=== PATIENT | male | born 1935 | race Caucasian/White ===

== ENCOUNTER 2017-01-09 03:32 | Inpatient (IN) | payer MEDICARE ==
[~2017-01-09] VITALS: Ht 172.7 cm; Wt 83.6 kg
[~2017-01-09 03:32] MED LIST: CARB-47 PO; CARV25TA2 PO; CITA20TA9 PO; CLOP75TA19 PO; ISOS60TA PO; METF-47 PO; MULT-934 PO; NITR0.3T10 SL; OMEG500C7 PO; PANT40TA25 PO; QUET25TA PO; ROPI1TAB12 PO; SIMV40TA5 PO; SUCR1TAB20 PO; VALS160T13 PO; [UNRECOGNIZED DRUG - CODE] PO
--- OUTSIDE RECORDS SUMMARY | 2017-01-09 03:36 | XMS REPORT | Continuity of Care Document ---
Author Author [facility] Organization [facility] Address Unknown Phone Unavailable Support Name Relationship Address Phone IGNACIA LOPEZ MD Caregiver [address] [place] [address] Unavailable IGNACIA JULIAN DO Caregiver [phone] [facility] [address] [address] [place] [address] Unavailable ANT VIRK Next Of Kin [address] [place] [address] Insurance Providers Guarantor Tonia Virk Address [address] [place] [address] Email DENIED 16 Payer Medicare Policy Number [id number] Subscriber's Name Tonia Virk Relationship 18 Self Effective Date 13 [facility] Policy Number [id number] Subscriber's Name Tonia Virk Relationship 18 Self Group Number [id number] Advance Directives Directive Response Recorded Date/Time Advanced Directives Type None 08/31/16 11:16pm Chief Complaint and Reason for Visit Chief Complaint Chest Pain Reason for Visit [id number] Problems Active Problems Medical Problem Onset Date Status Anxiousness Unknown Acute CAD (coronary artery disease) Unknown Chronic Chest pain Unknown Acute Fish hook injury of right thumb Unknown Acute Fish hook injury of right thumb Unknown Acute Gastritis ~04/2011 Chronic HTN (hypertension) Unknown Chronic Osteoarthritis cervical spine Unknown Chronic Overweight (BMI 25.0-29.9) Unknown Chronic Psoriasis Unknown Chronic Type 2 diabetes, controlled, with neuropathy Unknown Chronic Weakness Unknown Acute Past Problems Medical Problem Onset Date Unstable angina Unknown Medications Current Home Medications Medication Dose Units Route Directions Days Qty Instructions Start Date Aspirin (Ecotrin) 325 Mg Tablet. 325 Mg Oral Daily 07/18/09 Carbidopa/Levodopa (Sinemet 25-100 Mg Tablet) 1 Each Tablet 1 Tab Oral Three Times A Day 90 Tablet 08/31/16 Carvedilol 25 Mg Tablet 1 Tab Oral Twice Daily With Meals BEST WITH FOOD. 08/31/16 Citalopram Hydrobromide (Citalopram Hbr) 20 Mg Tablet 1 Tab Oral Bedtime 02/04/15 Clopidogrel Bisulfate (Plavix) 75 Mg Tablet 75 Mg Oral Daily 18/05 Isosorbide Mononitrate 60 Mg Tab.sr.24h 60 Mg Oral Twice A Day Metformin Hcl (Glucophage) 500 Mg Tablet 500 Mg Oral Twice A Day 07/18/09 Multivitamins (Multi-Day Vitamin) 1 Tab Tablet 1 Tab Oral Daily 07/18/09 Nitroglycerin 0.3 Mg Tab.subl 0.3 Mg Sublingual As Needed [place]-3 Fatty Acids (Fish Oil) 500 Mg Capsule 1,000 Mg Oral Daily 07/18/09 Pantoprazole Sodium (Protonix) 40 Mg Tablet.dr 40 Mg Oral Daily 07/18/09 Quetiapine Fumarate (Seroquel) 25 Mg Tablet 25 Mg Oral Bedtime Take 1 tablet, by mouth, once a day at bedtime. 07/26/15 Ropinirole Hcl 1 Mg Tablet Unknown Dose Oral 09/01/16 Simvastatin 40 Mg Tablet 40 Mg Oral Bedtime Take 1 tablet, by mouth , 1 time a day (at BEDTIME). 09/01/16 Sucralfate (Carafate) 1 Gm Tablet 1 G Oral Daily Take 1 tablet, by mouth, 4 times a day (Before EACH meal and at BEDTIME). 09/01/16 Valsartan (Diovan) 160 Mg Tablet 160 Mg Oral Daily 07/18/09 Past Home Medications Medication Directions Ordered Status Metoprolol Succinate (Toprol Xl) 50 Mg Tab.sr.24h, 50 Mg Oral Daily 07/18/09 Discontinued Mometasone Furoate (Elocon) 15 Gm Cream.gm., 15 Gm Topical Daily 07/18/09 Discontinued Pimecrolimus (Elidel) 100 Gm Cream.gm., 100 Gm Topical Twice A Day 07/18/09 Discontinued Social History Social History Problem Response Recorded Date/Time Onset Date Status Chewing Tobacco Status No 04/10/2013 11:20pm Not Applicable Not Applicable Hx Substance Use No 08/31/2016 11:50pm Not Applicable Not Applicable Hx Alcohol Use No 08/31/2016 11:50pm Not Applicable Not Applicable Has the pt used tobacco in the last 12 months No 07/27/2015 11:51am Not Applicable Not Applicable Quit (MM/YYYY) 1964 02/04/2015 10:06am Not Applicable Not Applicable Tobacco Usage none 02/04/2015 10:06am Not Applicable Not Applicable Query Response Start Date Stop Date Smoking Status Never smoker Hospital Discharge Instructions No hospital discharge instructions. Plan of Care Discharge Date 09/01/16 1:43am Disposition 02 TO [facility] Condition at Discharge Improved Prescriptions See Medication Section Referrals IGNACIA JULIAN DO Address: [address] [place] [address] [place] [phone] Functional Status No functional status results. Allergies, Adverse Reactions, Alerts Allergen Type Severity Reaction Status Last Updated No Known Drug Allergies Allergy Unknown Active 08/31/16 Immunizations Query Response on File Recorded Date/Time Hx Influenza Vaccination Y fall 201407/27/15 11:51am Hx Pneumococcal Vaccination Y fall 201307/27/15 11:51am Hx Tetanus, Diptheria, Pertussis Y 201106/19/14 8:31am Hx Influenza Vaccination Y fall 201407/27/15 11:51am Hx Tetanus, Diptheria, Pertussis Y 201106/19/14 8:31am Vital Signs Acute Vital Signs Vital Response Date/Time Temperature (Fahrenheit) 98.3 deg F (96.8 - 99.1) 09/01/2016 1:43am Temperature (Calculated Celsius) 36.88260 degrees C (36.0 - 37.3) 09/01/2016 1:43am Pulse Rate (adult) 75 bpm (60 - 100) 09/01/2016 1:43am Respiratory Rate 16 breaths/min (10 - 20) 09/01/2016 1:43am O2 Sat by Pulse Oximetry 94 % (90 - 100) 09/01/2016 1:43am Blood Pressure 155/74 mm Hg 09/01/2016 1:43am Height (Feet) 5 feet 08/31/2016 11:16pm Height (Inches) 8.00 inches 08/31/2016 11:16pm Weight (Kilograms) 84.300 kg 08/31/2016 11:16pm Body Mass Index (BMI) 28.0 08/31/2016 11:16pm Results Laboratory Results Test Name Result Units Flags Reference Collection Date/Time Result Date/ Time Comments White Blood Count 7.1 T/MM3 4.5-11.0 08/31/2016 11:29pm 08/31/2016 11: 36pm Red Blood Count 4.90 M/MM3 4.50-5.90 08/31/2016 11:29pm 08/31/2016 11: 36pm Hemoglobin 14.3 GM/DL 13.5-17.5 08/31/2016 11:29pm 08/31/2016 11:36pm Hematocrit 43.5 % 41-53 08/31/2016 11:29pm 08/31/2016 11:36pm Mean Corpuscular Volume 88.8 UM3 80-100 08/31/2016 11:29pm 08/31/2016 11:36pm Mean Corpuscular Hemoglobin 29.2 UUG 26-34 08/31/2016 11:29pm 2016 11:36pm Mean Corpuscular Hemoglobin Concent 32.9 GM/DL 31-37 08/31/2016 11:29pm 08/31/2016 11:36pm RDW Standard Deviation 44.5 FL 36.9-50.2 08/31/2016 11:29pm 08/31/2016 11:36pm Platelet Count 283 T/MM3 130-400 08/31/2016 11:29pm 08/31/2016 11:36pm Mean Platelet Volume 10.4 UM3 9.4-12.4 08/31/2016 11:29pm 08/31/2016 11 :36pm Neutrophils (%) (Auto) 62.3 % 33-66 08/31/2016 11:29pm 08/31/2016 11: 36pm Lymphocytes (%) (Auto) 24.0 % 23-45 08/31/2016 11:29pm 08/31/2016 11: 36pm Monocytes (%) (Auto) 11.5 % H 0-9.0 08/31/2016 11:29pm 08/31/2016 11: 36pm Eosinophils (%) (Auto) 1.7 % 0-4 08/31/2016 11:29pm 08/31/2016 11:36pm Basophils (%) (Auto) 0.4 % 0-2 08/31/2016 11:29pm 08/31/2016 11:36pm Immature Granulocyte % (Auto) 0.1 % 0.0-0.5 08/31/2016 11:29pm 2016 11:36pm Absolute Neutrophils (auto) 4.4 T/MM3 1.8-7.7 08/31/2016 11:29pm 2016 11:36pm Absolute Lymphocytes (auto) 1.7 T/MM3 1-4.8 08/31/2016 11:29pm 2016 11:36pm Absolute Monocytes (auto) 0.8 T/MM3 0-0.8 08/31/2016 11:29pm 2016 11:36pm Absolute Eosinophils (auto) 0.1 T/MM3 0-0.5 08/31/2016 11:29pm 2016 11:36pm Absolute Basophils (auto) 0.0 T/MM3 0-0.2 08/31/2016 11:29pm 2016 11:36pm Absolute Immature Granulocyte (auto 0.01 T/MM3 0.00-0.03 08/31/2016 11: 29pm 08/31/2016 11:36pm Icterus Index < 2 0-7 08/31/2016 11:29pm 08/31/2016 11:45pm Chemistry Specimen Hemolysis < 15 0-25 08/31/2016 11:29pm 08/31/2016 11:45pm 0-25: Specimen Exhibited No Hemolysis. Turbidity < 20 0-20 08/31/2016 11:29pm 08/31/2016 11:45pm Sodium Level 144 MEQ/L 134-144 08/31/2016 11:29pm 08/31/2016 11:45pm Potassium Level 4.1 MEQ/L 3.6-5 08/31/2016 11:29pm 08/31/2016 11:45pm Chloride Level 105 MEQ/L 98-107 08/31/2016 11:29pm 08/31/2016 11:45pm Carbon Dioxide Level 27 MEQ/L 22-30 08/31/2016 11:29pm 08/31/2016 11: 45pm Anion Gap 12 MEQ/L 5-15 08/31/2016 11:29pm 08/31/2016 11:45pm Blood Urea Nitrogen 16.0 MG/DL 9-20 08/31/2016 11:29pm 08/31/2016 11: 45pm Creatinine 1.1 MG/DL 0.8-1.5 08/31/2016 11:29pm 08/31/2016 11:45pm BUN/Creatinine Ratio 15 RATIO 6-26 08/31/2016 11:29pm 08/31/2016 11: 45pm Glomerular Filtration Rate Calc 64 08/31/2016 11:29pm 08/31/2016 11 :45pm Glucose Level 136 MG/DL H 75-110 08/31/2016 11:29pm 08/31/2016 11:45pm Calculated Osmolality 280 MOSM/KG 261-280 08/31/2016 11:29pm 2016 11:45pm Calcium Level 9.0 MG/DL 8.4-10.2 08/31/2016 11:29pm 08/31/2016 11:45pm Total Bilirubin 0.50 MG/DL 0.20-1.30 08/31/2016 11:29pm 08/31/2016 11: 45pm Alkaline Phosphatase 51 U/L 38-126 08/31/2016 11:29pm 08/31/2016 11: 45pm Total Protein 7.1 G/DL 6.3-8.2 08/31/2016 11:29pm 08/31/2016 11:45pm Albumin 4.2 G/DL 3.5-5.0 08/31/2016 11:29pm 08/31/2016 11:45pm Globulin 2.9 G/DL 2.4-3.6 08/31/2016 11:29pm 08/31/2016 11:45pm Albumin/Globulin Ratio 1.4 RATIO 1.1-2.2 08/31/2016 11:29pm 08/31/2016 11:45pm Aspartate Amino Transf (AST/SGOT) 35 U/L 17-59 08/31/2016 11:29pm 08/31 11:45pm Alanine Aminotransferase (ALT/SGPT) 35 U/L 21-72 08/31/2016 11:29pm 03/2017 11:45pm Troponin I 0.019 ng/ml 0-0.12 08/31/2016 11:29pm 08/31/2016 11:57pm Troponin values with a difference of 55% increase from orginal troponin value represent a true biological DELTA value. (%increase Calc=Orginal Troponin value, divided by subsequent Troponin value, multiplied by 100) LO-Lfd-W-Type Natriuretic Peptide 931 PG/ML H 0-175 08/31/2016 11:29pm 08/31/2016 11:57pm Rule in cut points: <50 years old=450; 50-75 years old=900; >75 years old=1800; When utilizing ProBNP rule-in cut points, adjustment for impaired renal function is typically not required. Procedures No known history of procedures. Encounters Encounter Location Arrival/Admit Date Discharge/Depart Date Attending Provider Departed Emergency Room [facility] 08/31/16 11:13pm 09/01/16 1: 43am IGNACIA LOPEZ MD Recent Diagnosis
--- OUTSIDE RECORDS SUMMARY | 2017-01-09 03:36 | XMS REPORT | Continuity of Care Document ---
Author Author [facility] Organization [facility] Address Unknown Phone Unavailable Support Name Relationship Address Phone MAURICE FERNANDEZ MD Caregiver [address] [place] [address] [place] [address] IGNACIA JULIAN DO Caregiver [facility] [phone] [facility] [facility] [address] [place] [phone] ANT VIRK Next Of Kin [address] [place] [address] Insurance Providers Payer Name Policy Number Subscriber Name Relationship Self Pay Huber Virk 18 Self Problems Medical Problems Problem Onset Date Status Fish hook injury of right thumb Unknown Active Medications Medication Dose Route Sig Days/Qty Instructions Order Date Discontinued Date Status Aspirin 325 Mg PO DAILY 07/18/09 Active Multivitamins 1 Tab PO DAILY 07/18/09 Active Pimecrolimus 100 Gm TP TWICE A DAY 07/18/09 03/04/12 Discontinued Nitroglycerin 0.3 Mg SL NEEDED 07/18/09 Active [place]-3 Fatty Acids 1,000 Mg PO DAILY 07/18/09 Active Valsartan 160 Mg PO DAILY 07/18/09 Active Mometasone Furoate 15 Gm TP DAILY 07/18/09 03/04/12 Discontinued Metformin Hcl 500 Mg PO TWICE A DAY 07/18/09 Active Isosorbide Mononitrate 60 Mg PO DAILY 07/18/09 Active Ezetimibe/Simvastatin 1 Tab PO DAILY 07/18/09 Active Clopidogrel Bisulfate 75 Mg PO DAILY 07/18/09 Active Niacin 1,000 Mg PO DAILY 07/18/09 Active Pantoprazole Sodium 40 Mg PO DAILY 07/18/09 Active Metoprolol Succinate 50 Mg PO DAILY 07/18/09 04/11/13 Discontinued Al Hydroxide/Mg Hydroxide NEEDED 03/04/12 Active Social History Social History Problem Response Recorded Date/Time Smoking Status Former smoker 06/19/2014 8:31am When did patient START smoking? 1940 06/19/2014 8:31am When did patient STOP smoking? 1969 06/19/2014 8:31am Chewing Tobacco Status No 04/10/2013 11:20pm Hx Substance Use No 06/19/2014 8:31am Hx Alcohol Use No 06/19/2014 8:31am Query Response Start Date Stop Date Smoking Status Former smoker Hospital Discharge Instructions No hospital discharge instructions. Plan of Care No plan of care. Functional Status Query Response Date Recorded Physical Hygiene Self June 19, 2014 8:31am Disabilities None June 19, 2014 8:31am Devices Used None June 19, 2014 8:31am Dressing Self June 19, 2014 8:31am Ambulation Self June 19, 2014 8:31am Diet Self June 19, 2014 8:31am Mental Status Alert Oriented June 19, 2014 8:31am Disabilities None June 19, 2014 8:31am Devices Used None June 19, 2014 8:31am Physical Hygiene Self June 19, 2014 8:31am Dressing Self June 19, 2014 8:31am Ambulation Self June 19, 2014 8:31am Diet Self June 19, 2014 8:31am Allergies, Adverse Reactions, Alerts Allergen Type Severity Reaction Status Last Updated No Known Drug Allergies Allergy Unknown Active 06/19/14 Immunizations Name Given Type Hx Influenza Vaccination Y 06/06 Historical Hx Pneumococcal Vaccination Yes Historical Hx Tetanus, Diptheria, Pertussis Y 2011 Historical Hx Influenza Vaccination Y 06/06 Historical Hx Tetanus, Diptheria, Pertussis Y 2011 Historical Vital Signs Acute Vital Signs Vital Response Date/Time Temperature (Fahrenheit) 96 deg F (96.8 - 99.1) Temperature (Calculated Celsius) 35.5584 degrees C (36.0 - 37.3) Pulse Rate (adult) 73 bpm (60 - 100) Respiratory Rate 16 breaths/min (10 - 20) O2 Sat by Pulse Oximetry 99 % (90 - 100) Blood Pressure 154/80 mm Hg Height 5 ft 8 in Weight 180 lb Body Mass Index 27.0 kg/m^2 Results Test Source Date Result Interp. Ref. Range Comments Activated Partial Thromboplast Time April 10, 2013 11:27pm 29.8 SEC N 24-36 Alanine Aminotransferase (ALT/SGPT) April 10, 2013 11:27pm 33 U/L N 21- 72 Albumin April 10, 2013 11:27pm 4.1 G/DL N 3.5-5.0 Albumin/Globulin Ratio April 10, 2013 11:27pm 1.4 RATIO N 1.1-2.2 Alkaline Phosphatase April 10, 2013 11:27pm 52 U/L N 38-126 Anion Gap April 10, 2013 11:27pm 13 MEQ/L N 5-15 Aspartate Amino Transf (AST/SGOT) April 10, 2013 11:27pm 31 U/L N 17- 59 BUN/Creatinine Ratio April 10, 2013 11:27pm 22 RATIO N 6-26 Basophils # (Auto) April 10, 2013 11:27pm 0.0 T/MM3 N 0-0.2 Basophils (%) (Auto) April 10, 2013 11:27pm 0.7 % N 0-2 Blood Urea Nitrogen April 10, 2013 11:27pm 22.0 MG/DL H 9-20 Calcium Level April 10, 2013 11:27pm 9.0 MG/DL N 8.4-10.2 Calculated Osmolality April 10, 2013 11:27pm 284 MOSM/KG H 261-280 Carbon Dioxide Level April 10, 2013 11:27pm 27 MEQ/L N 22-30 Chloride Level April 10, 2013 11:27pm 105 MEQ/L N 98-107 Conjugated Bilirubin March 04, 2012 3:23am 0.00 MG/DL N 0.00-0.30 Creatinine April 10, 2013 11:27pm 1.0 MG/DL N 0.8-1.5 Eosinophils # (Auto) April 10, 2013 11:27pm 0.1 T/MM3 N 0-0.5 Eosinophils (%) (Auto) April 10, 2013 11:27pm 1.5 % N 0-4 Globulin April 10, 2013 11:27pm 2.9 G/DL N 2.4-3.6 Glucose Level April 10, 2013 11:27pm 134 MG/DL H 75-110 Hematocrit April 10, 2013 11:27pm 42.9 % N 41-53 Hemoglobin April 10, 2013 11:27pm 15.0 GM/DL N 13.5-17.5 Lipase April 10, 2013 11:27pm 144 U/L N 23-300 Lymphocytes # (Auto) April 10, 2013 11:27pm 1.6 T/MM3 N 1-4.8 Lymphocytes (%) (Auto) April 10, 2013 11:27pm 26.8 % N 23-45 Mean Corpuscular Hemoglobin April 10, 2013 11:27pm 31.1 UUG N 26-34 Mean Corpuscular Hemoglobin Concent April 10, 2013 11:27pm 35.0 GM/DL N 31-37 Mean Corpuscular Volume April 10, 2013 11:27pm 88.8 UM3 N 80-100 Mean Platelet Volume April 10, 2013 11:27pm 9.5 UM3 N 9.4-12.4 Monocytes # (Auto) April 10, 2013 11:27pm 0.7 T/MM3 N 0-0.8 Monocytes (%) (Auto) April 10, 2013 11:27pm 12.6 % H 0-9.0 Neutrophils # (Auto) April 10, 2013 11:27pm 3.4 T/MM3 N 1.8-7.7 Neutrophils (%) (Auto) April 10, 2013 11:27pm 58.2 % N 33-66 Platelet Count April 10, 2013 11:27pm 245 T/MM3 N 130-400 Potassium Level April 10, 2013 11:27pm 4.0 MEQ/L N 3.6-5 Prothromb Time International Ratio April 10, 2013 11:27pm 1.06 N 0.86- 1.10 THERAPUTIC RANGE=2.00-3.00 FOR ANTI-THROMBOSIS THERAPUTIC RANGE=2.50- 3.50 FOR IMPLANTED VALVE RDW Standard Deviation April 10, 2013 11:27pm 43.2 FL N 36.9-50.2 Red Blood Count April 10, 2013 11:27pm 4.83 M/MM3 N 4.50-5.90 Sodium Level April 10, 2013 11:27pm 145 MEQ/L H 134-144 Total Bilirubin April 10, 2013 11:27pm 0.60 MG/DL N 0.20-1.30 Total Protein April 10, 2013 11:27pm 7.0 G/DL N 6.3-8.2 Troponin I April 10, 2013 11:27pm 0.015 ng/ml N 0-0.12 Unconjugated Bilirubin March 04, 2012 3:23am 0.10 MG/DL N 0.00-1.10 White Blood Count April 10, 2013 11:27pm 5.9 T/MM3 N 4.5-11.0 Glucometer April 30, 2011 7:42am 129 mg/dL H 75-110 Glomerular Filtration Rate Calc April 10, 2013 11:27pm 72 - Immature Granulocyte # (Auto) April 10, 2013 11:27pm 0.01 T/MM3 N 0.00- 0.03 Immature Granulocyte % (Auto) April 10, 2013 11:27pm 0.2 % N 0.0-0.5 KX-Oix-N-Type Natriuretic Peptide April 10, 2013 11:27pm 641 PG/ML H 0- 175 Rule in cut points: <50 years old=450; 50-75 years old=900; >75 years old=1800; When utilizing ProBNP rule-in cut points, adjustment for impaired renal function is typically not required. Procedures No known history of procedures. Encounters Encounter Location Date/Time Departed Emergency Room [facility] 06/19/14 8:25am Discharged Recurring [facility] 03/14/14 8:30am Recent Diagnosis
--- OUTSIDE RECORDS SUMMARY | 2017-01-09 03:37 | XMS REPORT | Continuity of Care Document ---
Author Author [facility] Organization [facility] Address Unknown Phone Unavailable Allergies Active Description Code Type Severity Reaction Onset Reported/Identified Relationship to Patient Clinical Status Yes No Known Allergies 307034 Unknown N/A 03/04/2012 Medications Medication Packaging Start Date Stop Date Route Dosage Sig HEPARIN (PORCINE) 5000 UNIT/ML 09/01/2016 09/02/2016 PRN HEPARIN (PORCINE)-0.45% NACL 09/01/2016 09/02/2016 TITRATE ISOSORBIDE MONONITRATE 09/01/2016 09/02/2016 BID CARVEDILOL 09/01/2016 09/02/2016 BIDWM PANTOPRAZOLE 09/01/2016 09/03/2016 ACB rOPINIRole 09/01/2016 09/03/2016 BID CLOPIDOGREL 09/01/2016 09/01/2016 QD ASPIRIN 09/01/2016 09/01/2016 QD PANTOPRAZOLE 09/01/2016 09/01/2016 QD MULTIVITAMIN 09/01/2016 09/03/2016 QD VALSARTAN 09/01/2016 09/02/2016 QD CARBIDOPA-LEVODOPA 25-100MG 09/01/2016 09/03/2016 TID HYDROCODONE-ACET 5-325MG 09/01/2016 09/03/2016 Q3HPRN ACETAMINOPHEN 09/01/2016 09/03/2016 Q4HPRN MORPHINE 09/01/2016 09/02/2016 Q2HPRN ASPIRIN 09/01/2016 09/03/2016 0700 CLOPIDOGREL 09/01/2016 09/01/2016 ONCE PRASUGREL 09/01/2016 09/01/2016 ONCE EZETIMIBE 09/01/2016 09/03/2016 PM SIMVASTATIN 09/01/2016 09/03/2016 PM SUCRALFATE 09/01/2016 09/02/2016 HS QUEtiapine 09/01/2016 09/03/2016 HS CITALOPRAM 09/01/2016 09/03/2016 HS CLOPIDOGREL 09/02/2016 09/01/2016 QD CARBIDOPA-LEVODOPA 25-100MG 09/02/2016 09/02/2016 TID PRASUGREL 09/02/2016 09/03/2016 QD NITROGLYCERIN 09/02/2016 09/03/2016 N3NNVAUD rOPINIRole 09/02/2016 09/02/2016 BID CARVEDILOL 09/02/2016 09/03/2016 BIDWM VALSARTAN 09/02/2016 09/03/2016 BID QUEtiapine 09/02/2016 09/02/2016 HS ISOSORBIDE MONONITRATE 09/03/2016 09/03/2016 0600 Problems Procedures Results Test Result Range PTT - 09/01/16 01:30 PTT 69.3 secs 23.0-33.0 CBC NO DIFF (HEMOGRAM) - 09/01/16 01:30 WBC - WHITE CELL COUNT 7.5 X10(3) 4.5-11.0 RBC - RED CELL COUNT 4.46 X10(6) 4.60-6.20 PLATELET COUNT 263 X10(3) 150-450 HEMOGLOBIN 13.4 g/dl 13.5-18.0 HEMATOCRIT 39.0 % 40.0-54.0 MCV 87.4 fL 80.0-96.0 MCH 30 pg 27-31 MCHC 34.4 % 32.0-36.0 CMP - COMPREHENSIVE METABOLIC PANEL - 09/01/16 01:30 GLUCOSE 133 mg/dl 74-106 BUN 16 mg/dl 7-18 CREATININE 1.08 mg/dl 0.70-1.30 eGFR >60 mL/min SODIUM (NA) 142 mEq/L 136-146 POTASSIUM, BLOOD 4.0 mEq/L 3.5-5.1 CHLORIDE 107 mEq/L 98-107 CO2 (BICARBONATE) 29 mEq/L 21-32 CALCIUM 8.6 mg/dl 8.5-10.1 ALBUMIN, SERUM 3.3 g/dl 3.4-5.0 PROTEIN, TOTAL 6.5 g/dl 6.4-8.2 AST (SGOT) 26 U/L 15-37 ALT (SGPT) 26 U/L 16-63 ALK PHOS 40 U/L 46-116 BILIRUBIN, TOTAL 0.3 mg/dl 0.2-1.0 MAGNESIUM - 09/01/16 01:30 MAGNESIUM 2.0 mg/dl 1.8-2.4 TROPONIN-I - 09/01/16 01:30 TROPONIN-I 0.04 ng/ml <=0.05 CKMB (INCLD. CK, CKMB, INDEX) - 09/01/16 01:30 CPK-CREATINE KINASE 125.00 U/L 39.00-308.00 CKMB 2.8 ng/ml <=3.6 CKMB MASS INDEX 2.2 LIPID PANEL - 09/01/16 01:30 CHOLESTEROL 144 mg/dl <=199 HDL CHOLESTEROL 50 mg/dl 40-60 TRIGLYCERIDES 77 mg/dl <=200 LDL, CALCULATED 78.6 mg/dl 0.0-99.0 VLDL, CALCULATED 15.4 mg/dl 0.0-130.0 CARDIAC RISK 3 A1C - 09/01/16 01:30 HEMOGLOBIN A1C 6.1 % 4.5-6.2 HOLD SPECIMEN FOR BLOOD BANK - 09/01/16 01:30 HOLD SPECIMEN FOR BLOOD BANK ARC GLUCOSE, ACCUCHEK - 09/01/16 06:15 GLUCOSE (ACCUCHEK) 106 mg/dl 74-105 PTT - 09/01/16 07:15 PTT 51.8 secs 23.0-33.0 PLATELET FUNCTION SCREEN IN HOUSE - 09/01/16 10:00 PLATELET COUNT 239 X10(3) 150-450 ADP PLATELET SCREEN 92 % 86-100 ARACHIDONIC ACID PLATELET SCREEN 87 % 60-100 PLT INHIBITION HEADER Results are expressed as % functioning platelets. Decreased platelet function may be due to a therapeutic response or other platelet defects. ADP: Glycoprotein IIb/ IIIIa inhibition (Plavix, Effient, Integrelin). Collagen: Platelet adhesion inhibition (Aggrenox, Pletal). Arachidonic Acid: VANG-1 inhibitors (aspirin). COLLAGEN PLT SCREEN 85 % 70-100 TROPONIN-I - 09/01/16 10:00 TROPONIN-I 0.06 ng/ml <=0.05 CKMB (INCLD. CK, CKMB, INDEX) - 09/01/16 10:00 CPK-CREATINE KINASE 105.00 U/L 39.00-308.00 CKMB 2.1 ng/ml <=3.6 CKMB MASS INDEX 2.0 CKMB (INCLD. CK, CKMB, INDEX) - 09/01/16 19:40 CPK-CREATINE KINASE 104.00 U/L 39.00-308.00 CKMB 2.4 ng/ml <=3.6 CKMB MASS INDEX 2.3 TROPONIN-I - 09/01/16 19:40 TROPONIN-I 0.08 ng/ml <=0.05 GLUCOSE, ACCUCHEK - 09/01/16 20:34 GLUCOSE (ACCUCHEK) 131 mg/dl 74-105 CBC NO DIFF (HEMOGRAM) - 09/02/16 05:50 WBC - WHITE CELL COUNT 6.0 X10(3) 4.5-11.0 RBC - RED CELL COUNT 4.19 X10(6) 4.60-6.20 PLATELET COUNT 232 X10(3) 150-450 HEMOGLOBIN 12.7 g/dl 13.5-18.0 HEMATOCRIT 36.8 % 40.0-54.0 MCV 87.8 fL 80.0-96.0 MCH 30 pg 27-31 MCHC 34.5 % 32.0-36.0 PTT - 09/02/16 05:50 PTT 24.1 secs 23.0-33.0 BMP - BASIC METABOLIC PANEL - 09/02/16 05:50 GLUCOSE 111 mg/dl 74-106 BUN 16 mg/dl 7-18 CREATININE 0.94 mg/dl 0.70-1.30 eGFR >60 mL/min SODIUM (NA) 141 mEq/L 136-146 POTASSIUM, BLOOD 3.9 mEq/L 3.5-5.1 CHLORIDE 107 mEq/L 98-107 CO2 (BICARBONATE) 26 mEq/L 21-32 CALCIUM 8.5 mg/dl 8.5-10.1 LIPID PANEL - 09/02/16 05:50 CHOLESTEROL 138 mg/dl <=199 HDL CHOLESTEROL 44 mg/dl 40-60 TRIGLYCERIDES 195 mg/dl <=200 LDL, CALCULATED 55.0 mg/dl 0.0-99.0 VLDL, CALCULATED 39.0 mg/dl 0.0-130.0 CARDIAC RISK 3 TROPONIN-I - 09/02/16 05:50 TROPONIN-I 0.09 ng/ml <=0.05 TROPONIN-I - 09/02/16 10:05 TROPONIN-I 0.07 ng/ml <=0.05 PROBNP - 09/02/16 10:05 PRO BNP 655 pg/ml <=450 GLUCOSE - 09/02/16 10:05 GLUCOSE 115 mg/dl 74-106 CBC NO DIFF (HEMOGRAM) - 09/03/16 04:51 WBC - WHITE CELL COUNT 5.1 X10(3) 4.5-11.0 RBC - RED CELL COUNT 4.42 X10(6) 4.60-6.20 PLATELET COUNT 233 X10(3) 150-450 HEMOGLOBIN 13.0 g/dl 13.5-18.0 HEMATOCRIT 38.5 % 40.0-54.0 MCV 87.1 fL 80.0-96.0 MCH 29 pg 27-31 MCHC 33.8 % 32.0-36.0 BMP - BASIC METABOLIC PANEL - 09/03/16 04:51 GLUCOSE 101 mg/dl 74-106 BUN 14 mg/dl 7-18 CREATININE 0.96 mg/dl 0.70-1.30 eGFR >60 mL/min SODIUM (NA) 142 mEq/L 136-146 POTASSIUM, BLOOD 3.7 mEq/L 3.5-5.1 CHLORIDE 107 mEq/L 98-107 CO2 (BICARBONATE) 27 mEq/L 21-32 CALCIUM 8.8 mg/dl 8.5-10.1 Encounters ACCT No. Visit Date/Time Discharge Status Pt. Type Provider Facility Loc./Unit Complaint [id number] 09/01/2016 02:21:00 09/03/2016 12: 38:00 DIS Inpatient SOPHIA VILLAVICENCIO [facility] [address] [facility] [id number] 01/20/2017 07:00:00 PEN Outpatient LLOYD DEBBIE [facility] 03 [facility] CM
--- NOTE | 2017-01-09 03:47 | NUR ---
PROVIDER DR MADSEN IN ROOM W/ PT.
--- NOTE | 2017-01-09 03:48 | ERPDOC ---
Departure Disposition Decision Date: January 09, 2017 Disposition Decision Time: 05:45 Disposition: 02 TO [facility] [place] [facility] Impression Impression Impression: Primary Impression: Acute cholecystitis due to biliary calculus Severity: Moderate Condition: Improved Seen By: Physician only Referrals: IGNACIA JULIAN DO (Family) Problems/Meds/Labs Reviewed?: Yes Medications reviewed and manag: Yes Follow up care ordered?: Yes Mental Status: Alert, Oriented HPI - Abdominal Pain General Stated Complaint: RIGHT SIDE ABD PAIN Time Seen by Provider: 03:47 Source: patient, family History/Exam Limitations: no limitations HPI - Abdominal Pain Initial Comments Patient is an 81-year-old male presents emergency room for evaluation of right flank pain. Patient awoke this morning approximately 2 AM right flank pain no radiation mild nausea no vomiting. Patient's had no fevers no chills normal bowel movements, normal urination. Pain became significant severe so patient decided to come to the ER for evaluation no meds given. Family states patient states he's been having intermittent pain now for months. Occurred At: home Onset: Rapid Duration: 1-3 hrs Pain Scale: Now & Worst: 8/10 Location: right flank Radiation: no radiation Allergies: Coded Allergies: No Known Drug Allergies (Verified Allergy, Unknown, 08/31/16) Past History Patient Surgical History CABG x5 1996 Laser sx (punched 18 holes in his heart) Heart catheterization, most recent 2012, no stents at that time but does have 5 coronary stents EGD, April,, showed mild gastritis. Past Medical History Metabolic: hypercholesterolemia, hypertension Cardiac: CAD, VA, angina GI: GERD Male: DENIES: UTI, kidney stones, renal insufficiency Surgical History General: DENIES: appendix, gallbladder Cardiac: cardiac bypass, cardiac cath, cardiac stent Family History Family PMH: FOUND: VA, cancer Vaccines Hx Influenza Vaccination: Yes (FALL 2014) Hx Pneumococcal Vaccination: Yes (fall 2013) Hx Tetanus, Diptheria, Pertuss: Yes (2011) Social History Does patient use chewing tobac: No Second Hand Exposure: No Substance Use Type: does not use Alcohol Intake: none Review of Systems Constitutional Constitutional: DENIES: appetite decrease, chills, dizziness, fever, weakness Eyes Vision: DENIES: double vision, loss of visual wilkerson ENMT Sinuses: DENIES: congestion, rhinorrhea Mouth/Throat: DENIES: sore throat Cardiovascular Cardiac: DENIES: chest pain, dyspnea on exertion Pulmonary Respiratory: DENIES: cough, dyspnea, sputum GI Upper Abdomen: nausea, vomiting, DENIES: pain Lower Abdomen: pain, DENIES: constipation, diarrhea General: DENIES: burning, frequency, hematuria, urgency Musculoskeletal General: DENIES: cramps, pain, weakness Integumentary Skin: DENIES: color change, itching, rash Endocrine Endocrine: DENIES: heat/cold intolerance Hematologic/Lymphatic Hematologic/Lymphatic: DENIES: anemia Physical Exam General General Nourishment: well nourished, well developed General Body Habitus: well groomed Vitals and Pain First Documented Vital Signs Date Time Temp Pulse Resp B/P Pulse Ox O2 Delivery O2 Flow Rate FiO2 01/09/17 03:32 98.1 65 18 187/85 95 Room Air 01/09/17 05:06 2.00 Weight: Kilograms: Height (feet): 5 Height (inches): 8.00 Triage Pain Scale: RN VS reviewed by Provider: Yes Eyes (brief) Eyes Brief: found: EOMI ENMT (brief) ENMT Brief: FOUND: mucosa moist, normal dentition, NOT FOUND: nasal erythema, pharnyx erythema, tonsillar deviation Neck (brief) Neck: NOT FOUND: adenopathy, spasm, tenderness Respiratory (brief) Respiratory: FOUND: clear all wilkerson, equal bilaterally, NOT FOUND: rales, wheezes Cardiovascular (brief) Cardiac: FOUND: regular rate, regular rhythm Capillary Refill: <2 sec Abdomen (brief) Abdominal Brief: FOUND: bowel normo active x4 Abdomen Palpation: FOUND: soft, tender Auscultation: FOUND: normoactive 1 - Tenderness to palpation Integumentary (brief) Integumentary Brief: FOUND: dry, pink, warm, NOT FOUND: rash Neurologic (brief) Neurological Brief: FOUND: CN w/o gross def to obs, motor-no gross deficits, sensory-no gross deficits Psychiatric (brief) Psychiatric Brief: FOUND: alert, oriented Differential Diagnoses Considering: Acute VA, Appendicitis, Aortic Dissection, Biliary Colic, Bowel Obstruction, Cholecystitis, Constipation, Crohn's, Diverticulitis, Gastroenteritis, GERD, Hernia, IBS, Ileus, Neoplasm, Pancreatitis, Pyelonephritis, Renal Colic, Ulcer, Ulcerative Colitis, UTI, Volvulus Progress Results/Orders Orders Lab Results Medications Current ED Medications Sodium Chloride (Normal Saline IV) 1,000 ml @ 999 mls/hr Q1H1M ONCE IV Last administered on 01/09/17 04:18; Start 01/09/17 at 04:00; Stop 01/09/17 at 05:00 ; Status DC Morphine Sulfate (Morphine) 4 mg O ONCE IV Last administered on 01/09/17 04: 25; Start 01/09/17 at 04:00; Stop 01/09/17 at 04:01; Status DC Ondansetron HCl (Zofran) 4 mg O ONCE IV Last administered on 01/09/17 04:21; Start 01/09/17 at 04:00; Stop 01/09/17 at 04:01; Status DC Ketorolac Tromethamine (Toradol) 15 mg O ONCE IV Last administered on 04:40; Start 01/09/17 at 04:45; Stop 01/09/17 at 04:46; Status DC Morphine Sulfate (Morphine) 4 mg O ONCE IV Last administered on 01/09/17 05: 07; Start 01/09/17 at 05:15; Stop 01/09/17 at 05:16; Status DC Progress Progress Discussed case with Dr. Julian, will admit for acute cholecystitis consult Dr. Rhodes, please give Invanz [address] : CT: Abd/Pelvis IV contrast Interpretation: Abnormal, Faxed Report CAROLYN MADSEN MD January 09, 2017 03:48 Hemolysis Index 03:51 Normal Saline (Normal PHA 01/09/17 Complete Saline Iv) 04:00 Morphine Sulfate PHA 01/09/17 Complete (Morphine) 04:00 Ondansetron Inj PHA 01/09/17 Complete (Zofran) 04:00 Ct Renal W/O Contrast CT 01/09/17 Taken 04:29 Ketorolac (Toradol) PHA 01/09/17 Complete 04:45 Morphine Sulfate PHA 01/09/17 Complete (Morphine) 05:15 Ertapenem (Invanz) PHA 01/09/17 In Process 05:45 Place In Facility: ED ADM 01/09/17 Transmitted 05:36 Measure Vital Signs LORI 01/09/17 In Process 05:36 Up In Room With Assist LORI 01/09/17 In Process 05:36 Npo: Nothing By Mouth DIET 01/09/17 Transmitted Breakfast Iv Lock (Nursing) LORI 01/09/17 In Process 05:36 Prn Orders (Adult) PHA 01/09/17 Transmitted (May Use Prn Orders) 05:45 Compression Type Scd/ LORI 01/09/17 In Process Jerald Hose 05:36 Us Gallbladder US 01/09/17 Transmitted 05:36 1/2 Ns W/ Kcl PHA 01/09/17 Transmitted 20meq(Floor Use) 05:45 Hydromorphone PHA 01/09/17 Transmitted (Dilaudid) 05:45 Ondansetron Inj PHA 01/09/17 Transmitted (Zofran) 05:45 Telemetry LORI 01/09/17 In Process 05:36 Manage Oxygen LORI 01/09/17 In Process Administration 05:36 Oxygen, Continuous RT 01/09/17 Transmitted 05:36 Wean Off Oxygen LORI 01/09/17 In Process 05:36 Lab Results Laboratory Tests Test 01/09/17 04:06 01/09/17 04:22 Urine Collection Type Voided-not cc-midstr Urine Color Yellow Urine Turbidity Clear Urine pH 7.0 Urine Specific [place] 1.020 Urine Protein Negative Urine Glucose (UA) Negative Urine Ketones Negative Urine Blood Negative Urine Nitrite Negative Urine Bilirubin Negative Urine Urobilinogen 0.2EU/DL Urine Leukocyte Esterase Negative Urinalysis Comment Microscopic not ind. White Blood Count 7.3T/MM3 Red Blood Count 4.69M/MM3 Hemoglobin 13.5GM/DL Hematocrit 40.1% Mean Corpuscular Volume 85.5UM3 Mean Corpuscular Hemoglobin 28.8UUG Mean Corpuscular Hemoglobin Concent 33.7GM/DL RDW Standard Deviation 45.4FL Platelet Count 210T/MM3 Mean Platelet Volume 10.6UM3 Immature Granulocyte % (Auto) 0.1% Neutrophils (%) (Auto) 71.9% Lymphocytes (%) (Auto) 17.5% Monocytes (%) (Auto) 9.0% Eosinophils (%) (Auto) 1.4% Basophils (%) (Auto) 0.1% Absolute Immature Granulocyte (auto 0.01T/MM3 Absolute Neutrophils (auto) 5.2T/MM3 Absolute Lymphocytes (auto) 1.3T/MM3 Absolute Monocytes (auto) 0.7T/MM3 Absolute Eosinophils (auto) 0.1T/MM3 Absolute Basophils (auto) 0.0T/MM3 Turbidity < 20 Sodium Level 143MEQ/L Potassium Level 3.9MEQ/L Chloride Level 105MEQ/L Carbon Dioxide Level 26MEQ/L Anion Gap 12MEQ/L Blood Urea Nitrogen 16.0MG/DL Creatinine 1.0MG/DL Glomerular Filtration Rate Calc 72 BUN/Creatinine Ratio 16RATIO Glucose Level 144MG/DL Calculated Osmolality 279MOSM/KG Calcium Level 9.3MG/DL Total Bilirubin 0.60MG/DL Icterus Index < 2 Aspartate Amino Transf (AST/SGOT) 30U/L Alanine Aminotransferase (ALT/SGPT) 26U/L Alkaline Phosphatase 49U/L Troponin I < 0.012ng/ml Total Protein 6.8G/DL Albumin 4.2G/DL Globulin 2.6G/DL Albumin/Globulin Ratio 1.6RATIO Lipase 129U/L Chemistry Specimen Hemolysis < 15 Medications Current ED Medications Sodium Chloride (Normal Saline IV) 1,000 ml @ 999 mls/hr Q1H1M ONCE IV Last administered on 01/09/17 04:18; Start 01/09/17 at 04:00; Stop 01/09/17 at 05:00 ; Status DC Morphine Sulfate (Morphine) 4 mg O ONCE IV Last administered on 01/09/17 04: 25; Start 01/09/17 at 04:00; Stop 01/09/17 at 04:01; Status DC Ondansetron HCl (Zofran) 4 mg O ONCE IV Last administered on 01/09/17 04:21; Start 01/09/17 at 04:00; Stop 01/09/17 at 04:01; Status DC Ketorolac Tromethamine (Toradol) 15 mg O ONCE IV Last administered on 04:40; Start 01/09/17 at 04:45; Stop 01/09/17 at 04:46; Status DC Morphine Sulfate 4 mg 4 mg O ONCE IV Last administered on 01/09/17 05:07; Start 01/09/17 at 05:15; Stop 01/09/17 at 05:16; Status DC Ertapenem/Sodium Chloride (Invanz/NS) 100 ml @ 200 mls/hr O ONCE IV ; Start at 05:45; Stop 01/09/17 at 06:14 Miscellaneous Medication PRN PRN ; Start 01/09/17 at 05:45 Potassium Chloride/Sodium Chloride (1/2 NS w/ KCL 20mEq) 1,000 ml @ 100 mls/hr Q10H IV ; Start 01/09/17 at 05:45 Hydromorphone HCl (Dilaudid) 0.5 mg Q1H PRN IV PAIN; Start 01/09/17 at 05:45 Ondansetron HCl (Zofran) 4 mg Q6H PRN IV NAUSEA; Start 01/09/17 at 05:45 CAROLYN MADSEN MD January 09, 2017 03:48
[2017-01-09] MEDS ORDERED: ONDANSETRON 4mg/2ml INJECTION IV ONE (04:00)
[2017-01-09] MEDS ORDERED: MORPHINE SULFATE 4 MG SYRINGE IV ONE ×2 (04:00→05:15)
[2017-01-09] MEDS ORDERED: NORMAL SALINE 1,000 ML IV ONE (04:00)
[2017-01-09 04:26] LABS: BLOOD, URINE NEGATIVE (NEGATIVE); COLOR,URINE YELLOW (YELLOW); LEUKOCYTE ESTERASE ,URINE NEGATIVE (NEGATIVE); NITRITE,URINE NEGATIVE (NEGATIVE); UROBILINOGEN,URINE 0.2 EU/DL (NORMAL)
[2017-01-09 04:28] LABS: BASOPHILS % (AUTO) 0.1 % (0-2); EOSINOPHILS # (AUTO) 0.1 T/MM3 (0-0.5); EOSINOPHILS % (AUTO) 1.4 % (0-4); HCT - HEMATOCRIT 40.1 % (41-53); HGB - HEMOGLOBIN 13.5 GM/DL (13.5-17.5); IMMATURE GRANULOCYTE # (AUTO) 0.01 T/MM3 (0.00-0.03); IMMATURE GRANULOCYTE % (AUTO) 0.1 % (0.0-0.5); LYMPHOCYTES # (AUTO) 1.3 T/MM3 (1-4.8); LYMPHOCYTES % (AUTO) 17.5 % (23-45); MEAN CORPUSCULAR HGB 28.8 UUG (26-34); MEAN CORPUSCULAR HGB CONC(MCHC 33.7 GM/DL (31-37); MEAN CORPUSCULAR VOLUME 85.5 UM3 (80-100); MEAN PLATELET VOLUME 10.6 UM3 (9.4-12.4); MONOCYTES # (AUTO) 0.7 T/MM3 (0-0.8); NEUTROPHILS #(AUTO)-ABSOLUTE 5.2 T/MM3 (1.8-7.7); NEUTROPHILS % (AUTO) 71.9 % (33-66); RED BLOOD COUNT 4.69 M/MM3 (4.50-5.90); WBC - WHITE BLOOD COUNT 7.3 T/MM3 (4.5-11.0)
[2017-01-09] MEDS ORDERED: PRAS10TA5 PO (04:35)
[2017-01-09 04:36] LABS: ALBUMIN 4.2 G/DL (3.5-5.0); ALBUMIN/GLOBULIN RATIO 1.6 RATIO (1.1-2.2); ALKALINE PHOSPHATASE 49 U/L (38-126); ALT (SGPT) 26 U/L (21-72); ANION GAP 12 MEQ/L (5-15); AST (SGOT) 30 U/L (17-59); BUN/CREATININE RATIO 16 RATIO (6-26); CALCIUM 9.3 MG/DL (8.4-10.2); CHLORIDE 105 MEQ/L (98-107); CO2 - CARBON DIOXIDE 26 MEQ/L (22-30); GLOMERULAR FILTRATION RATE 72; GLUCOSE 144 MG/DL (75-110); LIPASE 129 U/L (23-300); POTASSIUM 3.9 MEQ/L (3.6-5); SODIUM 143 MEQ/L (134-144); TOTAL PROTEIN 6.8 G/DL (6.3-8.2)
[2017-01-09] MEDS ORDERED: SACU1TAB7 PO (04:36)
--- NOTE | 2017-01-09 04:40 | NUR ---
XRAY AND CT SCAN PT GONE TO XRAY VIA CART.
[2017-01-09] MEDS ORDERED: KETOROLAC 30mg/ml INJECTION IV ONE (04:45)
--- NOTE | 2017-01-09 04:53 | NUR ---
CT SCAN AND XRAY PT BACK FROM XRAY VIA CART.
--- OUTSIDE RECORDS SUMMARY | 2017-01-09 04:55 | XMS REPORT | Continuity of Care Document ---
Author Author [facility] Organization [facility] Address Unknown Phone Unavailable Support Name Relationship Address Phone MAURICE FERNANDEZ MD Caregiver [address] [place] [address] [place] [address] IGNACIA JULIAN DO Caregiver [facility] [address] [place] [phone] ANT VIRK Next Of Kin [address] [place] [address] Insurance Providers Payer Name Policy [...] Nitroglycerin 0.3 Mg SL NEEDED 07/18/09 Active [place]-3 Fatty Acids 1,000 Mg PO DAILY 07/18/09 [...] 10, 2013 11:27pm 0.2 % N 0.0-0.5 HH-Zzk-I-Type Natriuretic Peptide April 10, 2013 11:27pm 641 PG/ML H 0- 175 Rule in cut points: <50 years old=450; 50-75 years old=900; >75 years old=1800; When utilizing ProBNP rule-in cut points, adjustment for impaired renal function is typically not required. Procedures No known history of procedures. Encounters Encounter Location Date/Time Departed Emergency Room [facility] 06/19/14 8:25am Discharged Recurring [facility] 03/14/14 8:30am Recent Diagnosis
--- OUTSIDE RECORDS SUMMARY | 2017-01-09 04:55 | XMS REPORT | Continuity of Care Document ---
Author Author [facility] Organization [facility] Address Unknown Phone Unavailable Allergies Active Description Code Type Severity Reaction Onset Reported/Identified Relationship to Patient Clinical Status Yes No Known Allergies [id number] Unknown N/A 03/04/2012 Medications Medication Packaging Start [...] PRASUGREL 09/02/2016 09/03/2016 QD NITROGLYCERIN 09/02/2016 09/03/2016 [id number] rOPINIRole 09/02/2016 09/02/2016 BID CARVEDILOL 09/02/2016 09/03/2016 [...] Status Pt. Type Provider Facility Loc./Unit Complaint [id number] 09/01/2016 02:21:00 09/03/2016 12: 38:00 DIS Inpatient SOPHIA VILLAVICENCIO [facility] [address] [facility] [id number] 01/20/2017 07:00:00 PEN Outpatient LLOYD DEBBIE [facility] 03 ISCHEMIA CM
[2017-01-09] MEDS ORDERED: HYDROMORPHONE 2mg/ml INJECTION IV PRN (05:45)
[2017-01-09] MEDS ORDERED: ONDANSETRON 4mg/2ml INJECTION IV PRN (05:45)
[2017-01-09] MEDS: 1/2 NS w/ KCL 20mEq 1,000 ML IV SCH ×2 (05:45→06:28)
[2017-01-09] MEDS ORDERED: PRN ORDERS MC (05:45)
[2017-01-09] MEDS ORDERED: ERTAPENEM 1 G in NORMAL SALINE 100 ML IV ONE (05:45)
--- NOTE | 2017-01-09 05:49 | NUR ---
REPORT REPORT GIVEN TO [facility]SEY [facility]ISH[facility]THY[facility]IT.
--- NOTE | 2017-01-09 06:00 | NUR ---
ADMIT ARRIVED TO MEDICAL RM 130 FROM ED VIA CART, PT REPORTS HIS ABD PAIN IS TOLERABLE AT 3/10. PT'S IS AT BEDSIDE.
--- NOTE | 2017-01-09 06:00 | NUR ---
DEPART PT LEFT ER ADMIT TO SURGICAL RM 130, IV AND INVANZ RUNNING 200/HR IV 20G W/ O2 2 LPM/ NC. PT CARE XFERED TO JOSEY KRISHNAMURTHY W/O CHANGE.
--- OUTSIDE RECORDS SUMMARY | 2017-01-09 06:00 | XMS REPORT | Continuity of Care Document ---
Author Author [facility] Organization [facility] Address Unknown Phone Unavailable Support Name Relationship Address Phone MAURICE FERNANDEZ MD Caregiver [address] [place] [address] [place] [address] IGNACIA JULIAN DO Caregiver [facility] [address] [place] [phone] ANT VIRK Next Of Kin [address] [place] [address] Insurance Providers Payer Name Policy [...] Nitroglycerin 0.3 Mg SL NEEDED 07/18/09 Active [place]-3 Fatty Acids 1,000 Mg PO DAILY 07/18/09 [...] 10, 2013 11:27pm 0.2 % N 0.0-0.5 KQ-Cmz-Q-Type Natriuretic Peptide April 10, 2013 11:27pm 641 PG/ML H 0- 175 Rule in cut points: <50 years old=450; 50-75 years old=900; >75 years old=1800; When utilizing ProBNP rule-in cut points, adjustment for impaired renal function is typically not required. Procedures No known history of procedures. Encounters Encounter Location Date/Time Departed Emergency Room [facility] 06/19/14 8:25am Discharged Recurring [facility] 03/14/14 8:30am Recent Diagnosis
--- OUTSIDE RECORDS SUMMARY | 2017-01-09 06:00 | XMS REPORT | Continuity of Care Document ---
Author Author [facility] Organization [facility] Address Unknown Phone Unavailable Allergies Active Description Code Type Severity Reaction Onset Reported/Identified Relationship to Patient Clinical Status Yes No Known Allergies [id number] Unknown N/A 03/04/2012 Medications Medication Packaging Start [...] PRASUGREL 09/02/2016 09/03/2016 QD NITROGLYCERIN 09/02/2016 09/03/2016 [id number] rOPINIRole 09/02/2016 09/02/2016 BID CARVEDILOL 09/02/2016 09/03/2016 [...] Status Pt. Type Provider Facility Loc./Unit Complaint [id number] 09/01/2016 02:21:00 09/03/2016 12: 38:00 DIS Inpatient SOPHIA VILLAVICENCIO [facility] [address] [facility] [id number] 01/20/2017 07:00:00 PEN Outpatient LLOYD DEBBIE [facility] 03 ISCHEMIA CM
[2017-01-09 06:13] VITALS: BP 137/66; PULSE 67; RESP 18; TEMP 96.3; O2SAT 94
[2017-01-09 06:14] VITALS: Ht 172.7 cm; Wt 83.6 kg
[2017-01-09 07:26] VITALS: BP 144/70; PULSE 61; RESP 16; TEMP 97.2; O2SAT 95
--- NOTE | 2017-01-09 08:23 | DI ---
Indication: ITS.REASON: acute cholecystitis on CT, further eval PROCEDURE: US GALLBLADDER: Encounter: Initial Comparison: None Technique: Grayscale and color Doppler sonographic imaging of the right upper quadrant of the abdomen was performed. Findings: Hepatic parenchyma is homogeneous without evidence for focal mass. Left hepatic lobe was not well seen due to shadowing bowel gas. The gallbladder is distended with a few shadowing gallstones in the gallbladder neck. Gallbladder wall thickening at 3.7 mm. Sonographic Wise's sign was reportedly negative. Both the intra and extrahepatic biliary system are of normal caliber with the common duct measuring 5 mm in dimension. Visualized portions of the head and body of the pancreas are unremarkable. The right kidney is present without collecting system dilatation. The right kidney measures 9.8 cm in length. Impression: Acute cholecystitis. There is a preliminary report by [employer]. .
--- NOTE | 2017-01-09 08:28 | DI ---
Indication: ITS.REASON: sudden onset right flank pain labs normal PROCEDURE: CT RENAL W/O CONTRAST: Encounter: Initial Comparison: Gallbladder ultrasound from today Technique: Axial CT images were performed through the abdomen and pelvis without intravenous contrast. Coronal and sagittal two-dimensional reformats. Automated Exposure Control and Iterative Reconstruction dose reducing techniques were utilized. Findings: Probable sebaceous cyst in the right chest. Scarring and fibrosis in both lung bases. Small 4 mm nodule in the right middle lobe. Coronary artery calcifications. The unenhanced contours of the liver show a cyst in the left lobe. The gallbladder is distended with multiple gallstones present in the gallbladder neck region. There appears to be a stone lodged in the proximal cystic duct. Mild fat stranding surrounding the gallbladder. Granulomatous disease throughout the spleen. The pancreas is normal. The adrenal glands are within normal limits. The unenhanced kidneys are grossly normal apart from a lower pole cyst on the right which is seen on the ultrasound. No abdominal or pelvic lymphadenopathy. Bladder is normal. Prostate and rectum are unremarkable. Scattered colonic diverticulosis without acute diverticulitis. No bowel obstruction. Bone windows show degenerative changes in the spine. Impression: Distended gallbladder with gallstones appears to represent acute cholecystitis. There is a gallstone present in the proximal cystic duct. There is a preliminary report by [employer]. .
[2017-01-09 08:46] VITALS: PULSE 61; RESP 16
--- NOTE | 2017-01-09 09:13 | CONSPD ---
Consultation Info Date DATE: 01/09/17 TIME: 09:05 Date of Consultation: January 09, 2017 Attending Physician: Dr. Trevino Reason for Consultation: Acute Cholecystitis HPI - Adult Date DATE: 01/09/17 TIME: 09:05 General History of Present Illness Per Dr. Rhodes Past Medical History Past Medical History Patient's Medical History: (1) Hypercholesteremia (2) History of DC (myocardial infarction) (3) GERD (gastroesophageal reflux disease) (4) CAD (coronary artery disease) (5) HTN (hypertension) (6) Type 2 diabetes, controlled, with neuropathy (7) Gastritis Onset Date: ~ 04/2011 Surgical History Patient's Surgical History: CABG x5 1995 Laser sx (punched 18 holes in his heart) Heart catheterization, most recent 2012, no stents at that time but does have 5 coronary stents EGD, April,, showed mild gastritis. C-scope, 07-18-09, mild diverticulosis Ectropion Repair OD, 07-27-15, Dr. Lopez Heart cath with stent placement, Aug 2016 Current Medications Home Meds Reported Medications Sacubitril/Valsartan (Entresto 49 mg-51 mg Tablet) 1 Each Tablet, 1 TAB PO BID, TAB 01/09/17 Prasugrel HCl (Effient) 10 Mg Tablet, 1 TAB PO DAILY, #90 TAB 1 Refill 01/09/17 Simvastatin (Simvastatin) 40 Mg Tablet, 40 MG PO HS, TAB Take 1 tablet, by mouth, 1 time a day (at BEDTIME). 09/01/16 Ropinirole HCl (Ropinirole HCl) 1 Mg Tablet, PO, TAB 09/01/16 Sucralfate (Carafate) 1 Gm Tablet, 1 G PO DAILY, TAB Take 1 tablet, by mouth, 4 times a day (Before EACH meal and at BEDTIME). 09/01/16 Carbidopa/Levodopa (Sinemet 25-100 mg Tablet) 1 Each Tablet, 1 TAB PO TID, #90 TAB 5 Refills 08/31/16 Quetiapine Fumarate (Seroquel) 25 Mg Tablet, 25 MG PO HS, TAB Take 1 tablet, by mouth, once a day at bedtime. 07/26/15 Citalopram Hydrobromide (Citalopram HBr) 20 Mg Tablet, 1 TAB PO HS, TAB 02/04/15 Pantoprazole (Protonix) 40 Mg Tablet.dr, 40 MG PO DAILY, 0 Refills 07/18/09 Isosorbide Mononitrate (Isosorbide Mononitrate) 60 Mg Tab.sr.24h, 60 MG PO BID, 0 Refills 07/18/09 Metformin Hcl (Glucophage) 500 Mg Tablet, 500 MG PO BID, 0 Refills 07/18/09 Valsartan (Diovan) 160 Mg Tablet, 160 MG PO DAILY, 0 Refills 07/18/09 [place]-3 Fatty Acids (Fish Oil) 500 Mg Capsule, 1000 MG PO DAILY, 0 Refills 07/18/09 Nitroglycerin (Nitroglycerin) 0.3 Mg Tab.subl, 0.3 MG SL PRN, 0 Refills 07/18/09 Multivitamins (Multi-Day Vitamin) 1 Tab Tablet, 1 TAB PO DAILY, 0 Refills 07/18/09 Allergies: Coded Allergies: No Known Drug Allergies (Verified Allergy, Unknown, 08/31/16) Family History Family History: CHD- father, siblings Prostate Cancer- Brother Stomach Cancer- Brother Leukemia- Mother Social History Smoking Status: Former smoker (smoker from 1951 to 1968, 12 PPD) Does patient use chewing tobac: No Second Hand Exposure: No Substance Use Type: does not use Alcohol Intake: none Marital Status: Sexuality: female partner Household Members: spouse Current Occupational Status: retired Advance Directives: No DPOA for Healthcare Only (, ROSI TAYLOR ) GS Review of Systems General REPORTS negative Ear, Nose, and Throat REPORTS negative Cardiovascular REPORTS negative Comments Recent stents August 2016 Respiratory REPORTS negative Gastrointestional REPORTS nausea (at onset of pain and in ED; none currently), REPORTS other ( Right upper quadrant abdominal pain, vomiting x1 in ED) Genitourinary REPORTS negative Musculoskeletal REPORTS negative Neurological REPORTS negative Psychiatric REPORTS negative Endocrine REPORTS diabetes Hematologic REPORTS use of blood thinners GS Physical Exam Vital Signs Date Time Temp Pulse Resp B/P Pulse Ox O2 Delivery O2 Flow Rate FiO2 01/09/17 08:46 61 16 01/09/17 07:26 97.2 144/70 95 Nasal Cannula 2.00 Height (Feet): 5 Height (Inches): 8.00 Weight (Kilograms): 83.600 BMI 28.0 Laboratory Laboratory Tests 01/09/17 04:22 Laboratory Tests 01/09/17 04:22 KAYE CHUN APRN January 09, 2017 09:11
[2017-01-09 13:19] VITALS: PULSE 61; RESP 16; O2SAT 95
--- NOTE | 2017-01-09 13:35 | HPPDOC ---
HPI - Adult Date DATE: 01/09/17 TIME: 13:20 General Chief Complaint: acute right upper quadrant pain History of Present Illness Mr. Virk is very pleasant 81-year-old white male who was admitted to the emergency department with acute onset of right upper quadrant pain. This pain awakened him at 2:00 this morning and severe enough to send him to the emergency room for relief. Upon presentation to the emergency department workup revealed acute cholecystitis with multiple gallstones blocking the biliary duct , resulting in a distended gallbladder. He was admitted with surgical consult with Dr. Rhodes Past Medical History Past Medical History Patient's Medical History: (1) History of [place] (myocardial infarction) (2) GERD (gastroesophageal reflux disease) (3) CAD (coronary artery disease) (4) HTN (hypertension) (5) Type 2 diabetes, controlled, with neuropathy (6) Gastritis Onset Date: ~ 04/2011 (7) Cardiomyopathy (8) Renal insufficiency (9) Psoriasis (10) Hypercholesteremia Surgical History Patient's Surgical History: CABG x5 1995 Laser sx (punched 18 holes in his heart) Heart catheterization, most recent 2012, no stents at that time but does have 5 coronary stents EGD, April,, showed mild gastritis. C-scope, 07-18-09, mild diverticulosis Ectropion Repair OD, 07-27-15, Dr. Lopez Heart cath with stent placement, Aug 2016 Current Medications Home Meds Reported Medications Sacubitril/Valsartan (Entresto 49 mg-51 mg Tablet) 1 Each Tablet, 1 TAB PO BID, TAB 01/09/17 Simvastatin (Simvastatin) 40 Mg Tablet, 40 MG PO HS, TAB Take 1 tablet, by mouth, 1 time a day (at BEDTIME). 09/01/16 Ropinirole HCl (Ropinirole HCl) 1 Mg Tablet, PO, TAB 09/01/16 Sucralfate (Carafate) 1 Gm Tablet, 1 G PO DAILY, TAB Take 1 tablet, by mouth, 4 times a day (Before EACH meal and at BEDTIME). 09/01/16 Carbidopa/Levodopa (Sinemet 25-100 mg Tablet) 1 Each Tablet, 1 TAB PO TID, #90 TAB 5 Refills 08/31/16 Quetiapine Fumarate (Seroquel) 25 Mg Tablet, 25 MG PO HS, TAB Take 1 tablet, by mouth, once a day at bedtime. 07/26/15 Citalopram Hydrobromide (Citalopram HBr) 20 Mg Tablet, 1 TAB PO HS, TAB 02/04/15 Pantoprazole (Protonix) 40 Mg Tablet.dr, 40 MG PO DAILY, 0 Refills 07/18/09 Isosorbide Mononitrate (Isosorbide Mononitrate) 60 Mg Tab.sr.24h, 60 MG PO BID, 0 Refills 07/18/09 Metformin Hcl (Glucophage) 500 Mg Tablet, 500 MG PO BID, 0 Refills 07/18/09 Valsartan (Diovan) 160 Mg Tablet, 160 MG PO DAILY, 0 Refills 07/18/09 [place]-3 Fatty Acids (Fish Oil) 500 Mg Capsule, 1000 MG PO DAILY, 0 Refills 07/18/09 Nitroglycerin (Nitroglycerin) 0.3 Mg Tab.subl, 0.3 MG SL PRN, 0 Refills 07/18/09 Multivitamins (Multi-Day Vitamin) 1 Tab Tablet, 1 TAB PO DAILY, 0 Refills 07/18/09 Discontinued Reported Medications Prasugrel HCl (Effient) 10 Mg Tablet, 1 TAB PO DAILY, #90 TAB 1 Refill 01/09/17 Allergies: Coded Allergies: No Known Drug Allergies (Verified Allergy, Unknown, 08/31/16) Family History Family History: CHD- father, siblings Prostate Cancer- Brother Stomach Cancer- Brother Leukemia- Mother Social History Smoking Status: Former smoker (smoker from 1951 to 1968, 1/2 PPD) Does patient use chewing tobac: No Second Hand Exposure: No Substance Use Type: does not use Alcohol Intake: none Marital Status: Sexuality: female partner Household Members: spouse Current Occupational Status: retired Advance Directives: No DPOA for Healthcare Only (, ROSI VIRK ) Review of Systems Constitutional: DENIES: chills, fever, night sweats Cardiovascular dyspnea on exertion, murmur Vascular: DENIES: Raynaud's, intermittent claudication, pedal edema Pulmonary Respiratory: DENIES: cough, hyperventilation, tachypnea GI Upper Abdomen: pain, DENIES: dysphagia, heartburn/indigestion, nausea Lower Abdomen: DENIES: blood in stool, mini-colored stools, diarrhea, melena General: frequency, DENIES: hematuria Musculoskeletal General: joint pain, DENIES: pain, tenderness Integumentary Skin: rash (psoriasis), DENIES: infections Hair: DENIES: alopecia Comments Psoriasis and vitiligo Neurological General: DENIES: change in strength, headache, numbness, syncope Psychiatric Psychiatric: anxiety, depression, DENIES: hallucinations, nervousness Endocrine DENIES: heat/cold intolerance, polydipsia, polyphagia Hematologic/Lymphatic DENIES: anemia, lymphadenopathy Allergic/Immunological DENIES: frequent infections, hives, sneezing All Other Systems All Other Systems: Reviewed (remainder of 10-point ROS Neg.) Physical Exam General General Nourishment: well nourished, apparent age, adult Vital Signs Vital Signs Date Time Temp Pulse Resp B/P Pulse Ox O2 Delivery O2 Flow Rate FiO2 01/09/17 11:16 16 01/09/17 08:46 61 01/09/17 07:26 97.2 144/70 95 Nasal Cannula 2.00 Height (Feet): 5 Height (Inches): 8.00 Eyes Brief: FOUND: EOMI, PERRL, NOT FOUND: scleral icterus Neck Brief: NOT FOUND: JVD, adenopathy, carotid bruits, thyromegaly Respiratory Brief: FOUND: clear all wilkerson, equal bilaterally, NOT FOUND: rales , wheezes Cardiovascular (brief) Cardiac Brief: FOUND: murmur (1 to 2/6 systolic), regular rate, regular rhythm , NOT FOUND: gallop, pedal edema Abdomen (brief) Abdominal Brief: FOUND: BS normo active x4, soft, tender (right upper quadrant) , NOT FOUND: hepatosplenomegaly Lymphatic (brief) Lymphatic Brief: NOT FOUND: adenopathy, lymphedema Musculoskeletal (brief) Musculoskeletal Brief: FOUND: extremities move equally, NOT FOUND: deformity, loss of motion, spasm, tenderness Integumentary (brief) Integumentary Brief: FOUND: lesions, rash Comments Psoriasis and vitiligo Neurologic (brief) Neurological Brief: FOUND: cranial 2-12 intact, motor, sensory Neurologic RN Documented GCS Eye Opening: (4)Spontaneous Verbal: (5)Oriented Motor: (6)Obeys Commands Total: Psychiatric (brief) FOUND: alert, attentive, normal affect, oriented Laboratory Laboratory Tests Test 01/09/17 04:06 01/09/17 04:22 Urine Collection Type Voided-not cc-midstr Urine Color Yellow Urine Turbidity Clear Urine pH 7.0 Urine Specific [place] 1.020 Urine Protein Negative Urine Glucose (UA) Negative Urine Ketones Negative Urine Blood Negative Urine Nitrite Negative Urine Bilirubin Negative Urine Urobilinogen 0.2EU/DL Urine Leukocyte Esterase Negative Urinalysis Comment Microscopic not ind. White Blood Count 7.3T/MM3 Red Blood Count 4.69M/MM3 Hemoglobin 13.5GM/DL Hematocrit 40.1% Mean Corpuscular Volume 85.5UM3 Mean Corpuscular Hemoglobin 28.8UUG Mean Corpuscular Hemoglobin Concent 33.7GM/DL RDW Standard Deviation 45.4FL Platelet Count 210T/MM3 Mean Platelet Volume 10.6UM3 Immature Granulocyte % (Auto) 0.1% Neutrophils (%) (Auto) 71.9% Lymphocytes (%) (Auto) 17.5% Monocytes (%) (Auto) 9.0% Eosinophils (%) (Auto) 1.4% Basophils (%) (Auto) 0.1% Absolute Immature Granulocyte (auto 0.01T/MM3 Absolute Neutrophils (auto) 5.2T/MM3 Absolute Lymphocytes (auto) 1.3T/MM3 Absolute Monocytes (auto) 0.7T/MM3 Absolute Eosinophils (auto) 0.1T/MM3 Absolute Basophils (auto) 0.0T/MM3 Turbidity < 20 Sodium Level 143MEQ/L Potassium Level 3.9MEQ/L Chloride Level 105MEQ/L Carbon Dioxide Level 26MEQ/L Anion Gap 12MEQ/L Blood Urea Nitrogen 16.0MG/DL Creatinine 1.0MG/DL Glomerular Filtration Rate Calc 72 BUN/Creatinine Ratio 16RATIO Glucose Level 144MG/DL Calculated Osmolality 279MOSM/KG Calcium Level 9.3MG/DL Total Bilirubin 0.60MG/DL Icterus Index < 2 Aspartate Amino Transf (AST/SGOT) 30U/L Alanine Aminotransferase (ALT/SGPT) 26U/L Alkaline Phosphatase 49U/L Troponin I < 0.012ng/ml Total Protein 6.8G/DL Albumin 4.2G/DL Globulin 2.6G/DL Albumin/Globulin Ratio 1.6RATIO Lipase 129U/L Chemistry Specimen Hemolysis < 15 Radiology DATE OF EXAM: 01/09/17 ORDERING DOCTOR: CAROLYN MADSEN MD TYPE OF EXAM: US GALLBLADDER REASON FOR EXAM: acute cholecystitis on CT, further eval Indication: ITS.REASON: acute cholecystitis on CT, further eval PROCEDURE: US GALLBLADDER: Encounter: Initial Comparison: None Technique: Grayscale and color Doppler sonographic imaging of the right upper quadrant of the abdomen was performed. Findings: Hepatic parenchyma is homogeneous without evidence for focal mass. Left hepatic lobe was not well seen due to shadowing bowel gas. The gallbladder is distended with a few shadowing gallstones in the gallbladder neck. Gallbladder wall thickening at 3.7 mm. Sonographic Wise's sign was reportedly negative. Both the intra and extrahepatic biliary system are of normal caliber with the common duct measuring 5 mm in dimension. Visualized portions of the head and body of the pancreas are unremarkable. The right kidney is present without collecting system dilatation. The right kidney measures 9.8 cm in length. Impression: Acute cholecystitis. There is a preliminary report by [employer]. . Addendum: 1.5 cm anechoic benign-appearing cyst in the lower pole of the right kidney corresponding to the findings on CT. . DATE OF EXAM: 01/09/17 ORDERING DOCTOR: CAROLYN MADSEN MD TYPE OF EXAM: CT RENAL W/O CONTRAST REASON FOR EXAM: sudden onset right flank pain labs normal Indication: ITS.REASON: sudden onset right flank pain labs normal PROCEDURE: CT RENAL W/O CONTRAST: Encounter: Initial Comparison: Gallbladder ultrasound from today Technique: Axial CT images were performed through the abdomen and pelvis without intravenous contrast. Coronal and sagittal two-dimensional reformats. Automated Exposure Control and Iterative Reconstruction dose reducing techniques were utilized. Findings: Probable sebaceous cyst in the right chest. Scarring and fibrosis in both lung bases. Small 4 mm nodule in the right middle lobe. Coronary artery calcifications. The unenhanced contours of the liver show a cyst in the left lobe. The gallbladder is distended with multiple gallstones present in the gallbladder neck region. There appears to be a stone lodged in the proximal cystic duct. Mild fat stranding surrounding the gallbladder. Granulomatous disease throughout the spleen. The pancreas is normal. The adrenal glands are within normal limits. The unenhanced kidneys are grossly normal apart from a lower pole cyst on the right which is seen on the ultrasound. No abdominal or pelvic lymphadenopathy. Bladder is normal. Prostate and rectum are unremarkable. Scattered colonic diverticulosis without acute diverticulitis. No bowel obstruction. Bone windows show degenerative changes in the spine. Impression: Distended gallbladder with gallstones appears to represent acute cholecystitis. There is a gallstone present in the proximal cystic duct. There is a preliminary report by [facility]. . 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 Status: Chronic (3) Cardiomyopathy Status: Chronic Assessment & Plan: Ry Jalloh is his print developer automatic (4) CAD (coronary artery disease) Status: Chronic Qualifiers: Coronary Disease-Associated Artery/Lesion type: bypass graft (5) Anxiousness Status: Chronic (6) HTN (hypertension) Status: Chronic (7) Type 2 diabetes, controlled, with neuropathy Status: Chronic (8) Psoriasis Status: Chronic (9) Renal insufficiency (10) GERD (gastroesophageal reflux disease) (11) History of [place] (myocardial infarction) Plan/Intensity of Service Admit with surgical consult Code Status Full Code Hospital Course Summary Disclaimer The hospital course summary below is not to be considered part of the above Progress Note. IGNACIA JULIAN DO January 09, 2017 13:24
--- NOTE | 2017-01-09 15:10 | NUR ---
DISCHARGE PATIENT IS ALERT AND ORIENTED X3. PATIENT VITALS ARE STABLE AND PATIENT IS ON ROOM AIR. PATIENT DENIES CP, NAUSEA, AND SOA. PATIENT WAS DISCHARGED FOR TRANSFER TO [facility] VIA EMS. PATIENT IV WAS LOCKED. PATIENT DISCHARGE PACKET GIVEN TO EMS. REPORT GIVEN TO Dany MONTOYA LPN. PATIENT STABLE UPON DISCHARGE.
--- NOTE | 2017-01-09 15:44 | NUR ---
DM Screen Diet Order: NPO Pt transferred to [facility] [place] prior to being seen by RD therefore DM screen deferred.
--- NOTE | 2017-01-09 19:10 | CONSF ---
DATE OF CONSULTATION 01/09/2017 FINDINGS Mr. Virk is an 81-year-old gentleman whom I was asked to see earlier this morning as a result of his history and physical findings of abdominal pain in conjunction with finding of cholelithiasis upon radiographic evaluation. The patient informed me that yesterday he began to experience a component of some abdominal pain. He described his pain as being within his right mid abdomen. Patient states the pain was constant in nature. Pain continued to the point that it was very uncomfortable. The patient therefore presented to the emergency room earlier this morning as a result of his severe pain. The patient was evaluated through the emergency room facility and subsequently admitted to our facility. Upon seeing the patient earlier this morning, he stated that initially in the morning his pain seemed to be somewhat better. By the time I saw him in late morning, he had stated that the pain had reoccurred and appeared to be comfortable. Patient states that he has never had pain similar to this in the past. The patient did share with me that he had significant heart history and had underwent placement of a coronary stent by Dr. Jalloh in August of this year. PAST MEDICAL HISTORY Performed by my nurse practitioner, Danny Martinez. PAST SURGICAL HISTORY Performed by my nurse practitioner, Danny Martinez. MEDICATIONS Performed by my nurse practitioner, Danny Martinez. ALLERGIES Performed by my nurse practitioner, Danny Martinez. SOCIAL HISTORY Performed by my nurse practitioner, Danny Martinez. FAMILY HISTORY Performed by my nurse practitioner, Danny Martinez. REVIEW OF SYSTEMS Performed by my nurse practitioner, Danny Martinez. PHYSICAL EXAMINATION GENERAL: Mr. Virk was seen earlier today and during interview process, he did appear to be somewhat uncomfortable but did not appear to be in acute distress. VITALS: Temperature 97.2. Pulse 61. Respirations 16. Blood pressure 144/70. SaO2 95% on 2 liters per nasal cannula.. HEENT: Normocephalic. Pupils are equally round and react to light and accommodation. NECK: Supple without lymphadenopathy. CHEST: Clear to auscultation bilaterally. HEART: Regular rate and rhythm. Normal S1, S2, without gallops, murmurs or clicks. ABDOMEN: Palpation of the abdomen did reveal tenderness localized to his right upper quadrant and right mid abdomen. He did have a slightly positive Wise's sign. He did have a component of some voluntary guarding. There was no evidence for involuntary guarding or rebound tenderness. EXTREMITIES: Without clubbing, cyanosis, or edema. NEURO: Cranial nerves II-XII grossly intact. Patient without focal, motor, or sensory deficits. LABORATORY/RADIOGRAPHIC EVALUATION The patient had a CBC upon admission which was within normal limits. White count was 7.3. Hemoglobin is 13.5. The patient had a CMP without marked abnormalities. Lipase was normal at 129. Radiographically, the patient did have a CT scan and gallbladder ultrasound. I did review the CT scan personally as well as the dictated report. One can see several stones on CT scan within the neck of the gallbladder. The gallbladder was found be quite distended. Radiology felt that this was consistent with acute cholecystitis and that there was a gallstone present within the proximal cystic duct. I reviewed gallbladder ultrasound that also was consistent with acute cholecystitis. The patient had a positive sonographic Wise's sign. There were multiple shadowing gallstones within the gallbladder neck. Gallbladder wall was thickened at 3.7 mm. I did review the patient's medications and he is on anticoagulation consisting of Effient 1 tablet daily. ASSESSMENT 81-year-old gentleman with significant associated medical comorbidities who presents with acute cholecystitis. PLAN Given the fact the patient is on anticoagulation that has no reversible agent/Effient, and the fact that he does have significant cardiomyopathy with a recorded ejection fraction of 30%, the fact that he had recently had a coronary stent placed a few months ago, I felt that the patient was a very high operative risk and he would be best managed by undergoing placement of a percutaneous cholecystotomy tube for decompression of his gallbladder with ongoing broad-spectrum intravenous antibiotics. I did inform his primary care physician of my recommendations. I spoke with our radiologist who preferred not to proceed with percutaneous cholecystotomy. Therefore, I contacted [facility] where there would be an interventional radiologist present. It was my recommendation that we send the patient to [facility] for further care. Specifically my recommendation would be that the patient undergo percutaneous cholecystotomy with ongoing antibiotics. I informed the patient that I would be more than happy to see him on an outpatient basis. I would recommend that an 6-8 weeks that we obtain a "cholangiogram" through his cholecystostomy tube if he still has a cholecystotomy tube at that time. If contrast does flow into the biliary tree and he does not have cystic duct obstruction, one may be able to pull his cholecystotomy tube at that time without surgical intervention. If on the other hand, he is found to have complete cystic duct obstruction, options will be to leave the tube in lifelong versus proceeding with interval cholecystectomy on a scheduled and not an emergent basis. I did spend a fair amount of time discussing the above recommendations with the patient and his . They understood and agreed. CHIVO
== END 2017-01-09 15:10 | disposition short-term general hospital (02) | DRG 445 ==
LOC: ED 03:32 → EDHOLD 05:36 → SRG 06:00
PROVIDERS: ADMIT Internal Medicine; ATTEND Internal Medicine
DX: K80.00 Calculus of gallbladder with acute cholecystitis without obstruction (principal); I42.9 Cardiomyopathy, unspecified; E11.40 Type 2 diabetes mellitus with diabetic neuropathy, unspecified; K21.9 Gastro-esophageal reflux disease without esophagitis; I25.10 Atherosclerotic heart disease of native coronary artery without angina pectoris; I10 Essential (primary) hypertension; L40.9 Psoriasis, unspecified; E78.5 Hyperlipidemia, unspecified; Z95.1 Presence of aortocoronary bypass graft; Z87.891 Personal history of nicotine dependence; I25.2 Old myocardial infarction
CPT/HCPCS: 80053; 81003; 83690; 84484; 85025; 96361; 96374; 96375; 96376

== ENCOUNTER 2017-10-01 15:40 | Inpatient (IN) ==
--- OUTSIDE RECORDS SUMMARY | 2017-10-01 15:51 | External Medical Summary | Continuity of Care Document ---
:1935 Author Organization [facility] Allergies Active Description Code Type Severity Reaction Onset Reported/ Identified Relationship Clinical to Patient Status Yes No Known 53616 Drug Unknown N/A 03/04/2012 Allergies 8 Aller gy Medications Medication Packaging Start Date Stop Date Route Dosage Sig HEPARIN 09/01/2016 (PORCINE) 5000 7 PRN UNIT/ML HEPARIN 09/01/2016 (PORCINE)-0.45% 7 TITRATE NACL 09/01/2016 ISOSORBIDE 7 BID MONONITRATE 09/01/2016 CARVEDILOL 7 BIDWM 09/01/2016 PANTOPRAZOLE 7 ACB 09/01/2016 rOPINIRole 7 BID 09/01/2016 CLOPIDOGREL 7 QD ASPIRIN 09/01/2016 7 QD 09/01/2016 PANTOPRAZOLE 7 QD 09/01/2016 MULTIVITAMIN 7 QD 09/01/2016 VALSARTAN 7 QD 09/01/2016 CARBIDOPA-LEVODOPA 7 TID 25-100MG 09/01/2016 HYDROCODONE-ACET 7 Q3HPRN 5-325MG 09/01/2016 ACETAMINOPHEN 7 Q4HPRN 09/01/2016 MORPHINE 7 Q2HPRN ASPIRIN 09/01/2016 7 0700 09/01/2016 CLOPIDOGREL 7 ONCE 09/01/2016 PRASUGREL 7 ONCE 09/01/2016 EZETIMIBE 7 PM 09/01/2016 SIMVASTATIN 7 PM 09/01/2016 SUCRALFATE 7 HS 09/01/2016 QUEtiapine 7 HS 09/01/2016 CITALOPRAM 7 HS 09/02/2016 CLOPIDOGREL 7 QD 09/02/2016 CARBIDOPA-LEVODOPA 7 TID 25-100MG 09/02/2016 PRASUGREL 7 QD 09/02/2016 NITROGLYCERIN 7 [id number] 09/02/2016 rOPINIRole 7 BID 09/02/2016 CARVEDILOL 7 BIDWM 09/02/2016 VALSARTAN 7 BID 09/02/2016 QUEtiapine 7 HS 09/03/2016 ISOSORBIDE 7 0600 MONONITRATE 03/26/2017 CARVEDILOL 7 BIDWM 03/26/2017 DOCUSATE SODIUM 7 BIDPRN 03/26/2017 ACETAMINOPHEN 7 Q4HPRN 03/26/2017 ALUM-MAG 7 Q4HPRN HYDROXIDE-SIMETH 03/26/2017 MAGNESIUM HYDROXIDE 7 HSPRN 03/26/2017 metFORMIN 7 BIDWM 03/26/2017 NITROGLYCERIN 7 [id number] 03/26/2017 rOPINIRole 7 BID ASPIRIN 03/26/2017 7 0700 03/26/2017 ISOSORBIDE 7 QD MONONITRATE 03/26/2017 PANTOPRAZOLE 7 ACB OMEGA-3 03/26/2017 FATTY ACIDS 7 0700 03/26/2017 MULTIVITAMIN 7 QD 03/26/2017 VALSARTAN 7 QD 03/26/2017 CARBIDOPA-LEVODOPA 7 TID 25-100MG 03/26/2017 SUCRALFATE 7 HS 03/26/2017 SIMVASTATIN 7 HS 03/26/2017 QUEtiapine 7 HS 03/26/2017 CITALOPRAM 7 HS 05/19/2017 DOCUSATE SODIUM 7 BIDPRN 05/19/2017 ACETAMINOPHEN 7 Q4HPRN 05/19/2017 ACETAMINOPHEN 7 Q4HPRN 05/19/2017 ALUM-MAG 7 Q4HPRN HYDROXIDE-SIMETH 05/19/2017 MAGNESIUM HYDROXIDE 7 HSPRN 05/19/2017 NITROGLYCERIN 7 [id number] 05/19/2017 HYDROCODONE-ACET 7 Q3HPRN 5-325MG 05/19/2017 ZOLPIDEM 7 [id number] 05/19/2017 ACETAMINOPHEN 7 Q4HPRN 05/19/2017 MULTIVITAMIN 7 QD 05/19/2017 CARVEDILOL 7 ONCE 05/19/2017 ISOSORBIDE 7 ONCE MONONITRATE 05/19/2017 CITALOPRAM 7 ONCE 05/19/2017 CARBIDOPA-LEVODOPA 7 ONCE 25-100MG 05/19/2017 PANTOPRAZOLE 7 ONCE 05/19/2017 rOPINIRole 7 ONCE 05/19/2017 metFORMIN 7 BIDWM OMEGA-3 05/19/2017 FATTY ACIDS 7 0700 05/19/2017 VALSARTAN 7 ONCE 05/19/2017 CARBIDOPA-LEVODOPA 7 TID 25-100MG 05/19/2017 CARVEDILOL 7 BIDWM 05/19/2017 rOPINIRole 7 BID 05/19/2017 SUCRALFATE 7 HS 05/19/2017 SIMVASTATIN 7 HS 05/19/2017 QUEtiapine 7 HS 05/20/2017 PANTOPRAZOLE 7 ACB ASPIRIN 05/20/2017 EC 7 0700 05/20/2017 ISOSORBIDE 7 QAM MONONITRATE 05/20/2017 CITALOPRAM 7 QD 05/20/2017 VALSARTAN 7 QD Problems Date Dx Attending Type Code Diagnosis Diagnosed By Coded 04/22/2017 DESAI, DEBBIE S E11.9 TYPE 2 DIABETES DESAI, DEBBIE MELLITUS WITHOUT COMPLICATIONS 04/22/2017 DESAI, DEBBIE S E78.5 HYPERLIPIDEMIA, DESAI, DEBBIE UNSPECIFIED 04/22/2017 DESAI, DEBBIE S I10 ESSENTIAL (PRIMARY) DESAI, DEBBIE HYPERTENSION 04/22/2017 DESAI, DEBBIE S 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, 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 ANGINA PECTORIS 04/22/2017 DESAI, DEBBIE P I25.5 ISCHEMIC DESAI, DEBBIE CARDIOMYOPATHY 04/22/2017 DESAI, DEBBIE S I44.7 LEFT BUNDLE-BRANCH DESAI, DEBBIE BLOCK, UNSPECIFIED 04/22/2017 DESAI, DEBBIE S Z53.09 PROCEDURE AND DESIA, DEBBIE TREATMENT NOT CARRIED OUT BECAUSE OF OTHER CONTRAINDICATION 04/22/2017 DESAI, DEBBIE S Z91.14 PATIENT'S OTHER DESAI, DEBBIE NONCOMPLIANCE WITH MEDICATION REGIMEN 04/22/2017 DESAI, DEBBIE S Z95.5 PRESENCE OF CORONARY DESAI, DEBBIE ANGIOPLASTY IMPLANT AND GRAFT 06/14/2017 DESAI, DEBBIE S E11.9 TYPE 2 DIABETES DESAI, DEBBIE MELLITUS WITHOUT COMPLICATIONS 06/14/2017 DESIA, DEBBIE S E78.5 HYPERLIPIDEMIA, DESAI, DEBBIE UNSPECIFIED 06/14/2017 DESAI, DEBBIE S I10 ESSENTIAL (PRIMARY) DESAI, DEBBIE HYPERTENSION 06/14/2017 DESAI, DEBBIE S 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, 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 ANGINA PECTORIS 06/14/2017 DESAI, DEBBIE S I25.2 OLD MYOCARDIAL DESAI, DEBBIE INFARCTION 06/14/2017 DESAI, DEBBIE P I25.5 ISCHEMIC DESAI, DEBBIE CARDIOMYOPATHY 06/14/2017 DESAI, DEBBIE S I44.7 LEFT BUNDLE-BRANCH DESAI, DEBBIE BLOCK, UNSPECIFIED 06/14/2017 DESAI, DEBBIE S L40.9 PSORIASIS, UNSPECIFIED DESAI, DEBBIE 06/14/2017 DESAI, DEBBIE S Z79.82 JAIL (CURRENT) DESAI, DEBBIE USE OF ASPIRIN 06/14/2017 DESAI, DEBBIE S Z79.84 SALT [employer] (CURRENT) DESAI, DEBBIE USE OF ORAL HYPOGLYCEMIC DRUGS 06/14/2017 DEBBIE DESAI S Z79.899 OTHER SALT W[employer]ING STATION DEBBIE DESAI (CURRENT) DRUG THERAPY 06/14/2017 DEBBIE DESAI S Z95.5 PRESENCE OF CORONARY DEBBIE DESAI ANGIOPLASTY IMPLANT AND GRAFT Procedures There is no data. Results Test Result Range PTT - 09/01/16 [...] response or other platelet defects. ADP: Glycoprotein IIb/IIIIa inhibition (Plavix, Effient, Integrelin). Collagen: Platelet adhesion [...] 29 pg 27-31 MCHC 33.8 % 32.0-36.0 [facility] - BASIC METABOLIC PANEL - 09/03/16 04:51 GLUCOSE 101 mg/dl 74-106 BUN 14 mg/dl 7-18 CREATININE 0.96 mg/dl 0.70-1.30 eGFR >60 mL/min SODIUM (NA) 142 mEq/L 136-146 POTASSIUM, BLOOD 3.7 mEq/L 3.5-5.1 CHLORIDE 107 mEq/L 98-107 CO2 (BICARBONATE) 27 mEq/L 21-32 CALCIUM 8.8 mg/dl 8.5-10.1 [facility] - BASIC METABOLIC PANEL - 03/26/17 07:33 GLUCOSE 116 mg/dl 74-106 BUN 15 mg/dl 7-18 CREATININE 1.06 mg/dl 0.70-1.30 eGFR >60 mL/min >60 SODIUM (NA) 141 mEq/L 136-146 POTASSIUM, BLOOD 3.8 mEq/L 3.5-5.1 CHLORIDE 109 mEq/L 98-107 CO2 (BICARBONATE) 27 mEq/L 21-32 CALCIUM 8.6 mg/dl 8.5-10.1 CBC NO DIFF (HEMOGRAM) - 03/26/17 07:33 WBC - WHITE CELL COUNT 4.5 X10(3) 4.5-11.0 RBC - RED CELL COUNT 4.29 X10(6) 4.60-6.20 PLATELET COUNT 225 X10(3) 150-450 HEMOGLOBIN 12.5 g/dl 13.5-18.0 HEMATOCRIT 37.1 % 40.0-54.0 MCV 86.5 fL 80.0-96.0 MCH 29 pg 27-31 MCHC 33.7 % 32.0-36.0 HOLD SPECIMEN FOR BLOOD BANK - 03/26/17 07:33 HOLD SPECIMEN FOR BLOOD BANK ARC CBC NO DIFF (HEMOGRAM) - 05/19/17 08:18 WBC - WHITE CELL COUNT 5.1 X10(3) 4.5-11.0 RBC - RED CELL COUNT 4.51 X10(6) 4.60-6.20 PLATELET COUNT 232 X10(3) 150-450 HEMOGLOBIN 13.1 g/dl 13.5-18.0 HEMATOCRIT 39.1 % 40.0-54.0 MCV 86.7 fL 80.0-96.0 MCH 29 pg 27-31 MCHC 33.5 % 32.0-36.0 INR (PROTIME) - 05/19/17 08:18 INR 1.08 0.90-1.40 BMP - BASIC METABOLIC PANEL - 05/19/17 08:18 GLUCOSE 113 mg/dl 74-106 BUN 19 mg/dl 7-18 CREATININE 0.98 mg/dl 0.70-1.30 eGFR >60 mL/min >60 SODIUM (NA) 139 mEq/L 136-146 POTASSIUM, BLOOD 4.7 mEq/L 3.5-5.1 CHLORIDE 106 mEq/L 98-107 CO2 (BICARBONATE) 25 mEq/L 21-32 CALCIUM 8.7 mg/dl 8.5-10.1 HOLD SPECIMEN FOR BLOOD BANK - 05/19/17 08:18 HOLD SPECIMEN FOR BLOOD BANK ARC GLUCOSE, ACCUCHEK - 05/19/17 10:49 GLUCOSE (ACCUCHEK) 95 mg/dl 74-105 GLUCOSE, ACCUCHEK - 05/19/17 13:58 GLUCOSE (ACCUCHEK) 157 mg/dl 74-105 GLUCOSE, ACCUCHEK - 05/19/17 20:47 GLUCOSE (ACCUCHEK) 126 mg/dl 74-105 GLUCOSE, ACCUCHEK - 05/20/17 03:32 GLUCOSE (ACCUCHEK) 123 mg/dl 74-105 Encounters ACCT No. Visit Discharge Status Pt. Type Provider Facility Loc./Unit Complaint Date/Time [id number] 05/19/2017 05/20/2017 [facility] Outpatient [place], [place] [address] ISCHEMIA 07:39:00 13:05:00 [facility] [place] [id number] 03/26/2017 03/26/2017 [facility] Outpatient [place], [place] 110 ISCHEMIA 07:11:00 08:34:00 [facility] [place] [id number] 09/01/2016 09/03/2016 DIS Inpatient [place] [address] [place] 02:21:00 12:38:00 [facility]
[2017-10-01 16:15] VITALS: BMI 26.8
[2017-10-01] MEDS: FentaNYL 100 MCG/2 ML INJECTION IVP PRN ×3 (16:35→22:54)
[2017-10-01] MEDS: METFORMIN 500 MG TABLET PO SCH (18:10)
[2017-10-01] MEDS: ISOSORBIDE MONONITRATE ER 60 MG TABLET PO SCH (18:10)
[2017-10-01] MEDS: SUCRALFATE 1 GM TABLET PO SCH (18:10)
[2017-10-01] MEDS: CARVEDILOL 25 MG TABLET PO SCH (18:11)
[2017-10-01] MEDS ORDERED: Hyoscyamine 0.125mg Sublingual tab SL ONE (19:30)
[2017-10-01] MEDS: ROPINIROLE 1 MG TABLET PO SCH (21:51)
[2017-10-01] MEDS: CITALOPRAM 20 MG TABLET PO SCH (21:51)
[2017-10-01] MEDS: QUETIAPINE 50 MG TABLET PO SCH (21:52)
[2017-10-02] MEDS: FentaNYL 100 MCG/2 ML INJECTION IVP PRN ×2 (06:06→11:55)
[2017-10-02] MEDS: SUCRALFATE 1 GM TABLET PO SCH ×3 (06:07→17:04)
[2017-10-02] MEDS: ISOSORBIDE MONONITRATE ER 60 MG TABLET PO SCH ×2 (06:07→17:05)
--- NOTE | 2017-10-02 08:03 | XRay Report ---
Indication: acute ruq pain,luq pain, cad, cardiomyopathy PROCEDURE: XR chest 1V: Encounter: Initial Comparison: August 2016 eight, FINDINGS: The lungs are clear. There is no abnormal airspace opacity, pleural effusion or pneumothorax identified. The heart size, pulmonary vasculature and mediastinum are stable. Left pacemaker. Prior CABG. IMPRESSION: No acute cardiopulmonary abnormality. .
--- NOTE | 2017-10-02 08:07 | Ultrasound Report ---
Indication: acute ruq pain, luq pain cad, cardiomyopathy PROCEDURE: US gall bladder: Encounter: Initial Comparison: Gallbladder ultrasound dated January 09, 2017 Technique: Grayscale and color Doppler sonographic imaging of the right upper quadrant of the abdomen was performed. Findings: Hepatic parenchyma is echogenic and shows a small 1.4 cm probable cyst in the left lobe. The gallbladder shows nonmobile echogenic sludge and stone debris in the neck with wall thickening at 3.6 mm. Sonographic Wise sign was reportedly negative. Both the intra and extrahepatic biliary system are of normal caliber with the common duct measuring 3 mm in dimension. Visualized portions of the head and body of the pancreas are unremarkable. The right kidney is present without collecting system dilatation. The right kidney measures 10.9 cm in length. 1.7 cm benign-appearing right renal cyst. Impression: 1. Acute cholecystitis. 2. Hepatic steatosis. There is a preliminary report by virtual radiologic. .
[2017-10-02] MEDS ORDERED: PRASUGREL 10 MG TABLET PO SCH (09:00)
[2017-10-02] MEDS: ROPINIROLE 1 MG TABLET PO SCH ×2 (10:29→22:12)
[2017-10-02] MEDS: Valsartan 160 MG TABLET PO SCH (10:29)
[2017-10-02] MEDS: CARVEDILOL 25 MG TABLET PO SCH ×2 (10:29→17:31)
[2017-10-02] MEDS: METFORMIN 500 MG TABLET PO SCH ×2 (10:38→17:32)
[2017-10-02] MEDS ORDERED: PHARMACY CONSULT - OTHER MEDS MC ONE (16:25)
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
[2017-10-02] MEDS ORDERED: SALINE FLUSH 10ml SYRINGE ONE (16:54)
[2017-10-02] MEDS ORDERED: IOHEXOL 300mg/ml 100ml INJECTION ONE (16:54)
--- NOTE | 2017-10-02 17:27 | Consultation ---
DATE OF CONSULTATION 10/02/2017 FINDINGS Mr. Virk is an 82-year-old gentleman whom I was asked to see today as a new patient/consultation as a result of the patient's history and physical findings of abdominal pain in conjunction with an abnormal gallbladder ultrasound revealing evidence for acute cholecystitis. The patient is actually known to my surgical practice but it has been a period of time since I have seen him. I actually met the patient in December 2016 when he had presented to our facility as a result of acute cholecystitis at that time. The patient had at that time a significant history for coronary artery disease/congestive heart failure and was fully anticoagulated. He had had a stent placed just a few months prior to his presentation in December of last year. At that time I had recommended that the patient be treated by placement of a percutaneous cholecystostomy tube. Patient states that he was transferred to [place] and had a tube "placed in his gallbladder." Patient states that he "did get better and eventually had his tube removed." Patient states that he had been doing quite well from an abdominal standpoint as well as from a heart standpoint. Patient states that he did have a ""defibrillator placed since I have seen him last." Patient states that about two weeks ago he began to experience a frequent cough. Patient states that he was "coughing quite a bit." Patient states that he did see his PCP's nurse practitioner who had placed him on some "cough medicine." Patient states that his cough was improving and that he was "feeling better." Patient states that yesterday after awakening and reading the paper he began to notice pain within his abdomen. In regards to the location of his pain the patient points to an area somewhat within the right lower quadrant. The area of tenderness is actually is just to the right and slightly caudad to the umbilicus. The patient states the pain is constant in nature. Pain is made worse when "someone pushes on him." He has not had any nausea or vomiting with the pain. Pain is somewhat improved by lying still. PAST MEDICAL HISTORY, PAST SURGICAL HISTORY, MEDICATIONS, ALLERGIES, SOCIAL HISTORY, FAMILY MEDICAL HISTORY, REVIEW OF SYSTEMS Performed by my nurse practitioner, Danny Martinez APRN. PHYSICAL EXAM GENERAL: Mr. Virk is an 82-year-old gentleman who upon entering the room did not appear to be in acute distress. He was quite conversant and good spirits. VITAL SIGNS: Afebrile, normotensive. Last recorded vitals include temperature 97.8, pulse 64, respirations 18, blood pressure 146/73, SAO2 92% on room air. HEENT: Normocephalic. Pupils are equally round and react to light and accommodation. NECK: Supple without lymphadenopathy. CHEST: Clear to auscultation bilaterally. HEART: Regular rate and rhythm. Normal S1 and S2 without gallops, murmurs or clicks. ABDOMEN: Visualization of the abdomen did not reveal it to be markedly distended in nature. Palpation of the abdomen did not reveal any tenderness specifically located within his right upper quadrant. He did not have a positive Wise sign, i.e., with firm palpation within the right upper quadrant and upon deep inspiration there was no exacerbation of his pain or splinting. Upon palpation of his abdomen he did have tenderness somewhat within the left lower quadrant suprapubic region as well as just above the right anterior iliac spine and slightly medial. He did have a slight component of some voluntary guarding but there was no evidence for involuntary guarding or rebound. No evidence for pamela peritoneal signs. There was no evidence for hepatosplenomegaly or other abnormal masses. EXTREMITIES: Without clubbing, cyanosis, or edema. NEURO: Cranial nerves II-XII grossly intact. Patient is without focal motor or sensory deficits. LABORATORY/RADIOGRAPHIC EVALUATION The patient had a CBC yesterday and his white count was 11.7. Today his white count has decreased to 9.3. Hemoglobin is 12.6. CMP was obtained and found to be essentially within normal limits. Specifically , AST, ALT, alkaline phosphatase and total bilirubin were all normal. Lipase was also normal. I did review a gallbladder ultrasound that was obtained yesterday. The gallbladder ultrasound did reveal echogenic sludge and stones within the gallbladder. This was described as nonmobile in nature. There was a component of some wall thickening at 3.6 mm. This material within the gallbladder was described as being within the neck of the gallbladder. Findings were suggestive for that of acute cholecystitis. ASSESSMENT 82-year-old gentleman with significant medical comorbidities and is chronically anticoagulated who presents with right mid abdominal pain of unclear etiology at this time. PLAN CT scan of abdomen and pelvis. Initiate empiric antibiotics. As stated above, I did review the patient's chart including laboratory, radiographic results as well as a prior consult note performed at [facility] on January 09, 2017. I informed the patient that his physical findings are not highly indicative for cholecystitis in the fact that his pain is not located within the right subcostal region and he does not have a Wise sign. I informed the patient that we knew previously that he had a component of some gallbladder wall thickening and material within the gallbladder. I am not convinced that this ultrasound is definitive in nature for acute cholecystitis. His pain upon physical examination is almost more consistent with that of possible appendicitis in the fact that it is more so within his right lower quadrant than within his right upper quadrant. Would recommend we go ahead and obtain a CT scan of his abdomen and pelvis for further evaluation of his abdominal pain. One perhaps may see some evidence on CT scan of inflammatory changes surrounding the gallbladder more definitive for acute cholecystitis. Given his medical comorbidities and the fact that he is on anticoagulation, I would not recommend surgical intervention at this time. I do not feel the patient has an acute surgical abdomen requiring immediate surgical intervention. I will be checking out here shortly for the weekend. Dr. Chung will be continuous miner operator helper from a surgical standpoint. Will discuss the patient with Dr. Chung as well as my plans. CHIVO
[2017-10-02] MEDS: PIPERACILLIN/TAZOBACTAM 3.375 GM in NS 50 ML IV SCH ×2 (17:31→22:11)
--- NOTE | 2017-10-02 17:41 | Internal Med Progress Note ---
Internal Medicine Subjective Patient seen and examined in his room. at the bedside. Questions answered. Surgical consultation appreciated. CT of the abdomen was just performed and results are pending. At this time, Huber indicates that his pain is better controlled at 3 out of 10 as opposed to 5-6 out of 10 yesterday. He has no appetite at this time. He denies chest pain or shortness of breath or cough. Exam Vital Signs: Temperature 98.1 F 10/02/17 16:00 Pulse Rate 65 10/02/17 16:00 Respiratory Rate 16 10/02/17 16:00 Blood Pressure 164/75 H 10/02/17 16:00 Pulse Oximetry 95 10/02/17 16:00 Telemetry Rhythm: Sinus Rhythm Height/Weight/BMI: Height 5 ft 8 in Weight 80.3 kg Body Mass Index 26.8 - Constitutional Present: mild distress, cooperative - Routine HEENT Exam Head: Present: normocephalic, atraumatic Eye: Present: EOMI, PERRL, conjunctivae pink. Absent: conjunctival icterus, scleral injection ENT: Present: mucous membranes moist, oropharynx clear, nares patent - Routine Neck Exam Present: supple. Absent: JVD, lymphadenopathy, thyromegaly - Routine Chest/Breast/Axilla Exam Chest wall: Absent: tenderness Axillae: Absent: lymphadenopathy - Routine Respiratory Exam Present: CTA bilaterally. Absent: accessory muscle use, dyspnea, rales, rhonchi , wheezes - Routine Cardiovascular Exam Present: RRR, no murmur. Absent: S3, S4 - Routine Abdominal Exam Present: normoactive bowel sounds, tenderness (in the epigastrium, right upper quadrant, right lower quadrant.), distended - Routine Extremities Exam Absent: cyanosis, clubbing, edema - Routine Skin Exam Present: rash (psoriasis) - Routine Neurological Exam Present: alert, oriented X3, CN II-XII intact - Routine Psychiatric Exam Present: normal affect, cooperative, good insight, good judgment. Absent: depressed, anxious Internal Medicine Results - Labs CBC & Chem 7: 18 02:18 10/02/17 02:18 Labs: Short CBC 10/01/17 10/02/17 Range/Units 16:26 02:18 WBC 11.7 H 9.3 (4.5-11.0) T/MM3 Hgb 13.4 L 12.6 L (13.5-17.5) GM/DL Hct 41.2 37.8 L (41-53) % Plt Count 293 282 (130-400) T/MM3 BMP 10/01/17 10/02/17 16:26 02:18 Sodium 143 143 Potassium 4.0 4.2 Chloride 107 107 Carbon Dioxide 24 27 BUN 15.0 16.0 Creatinine 0.9 0.8 Glucose 139 H 148 H Calcium 9.1 8.9 Cardiac Enzymes 10/01/17 10/01/17 10/02/17 Range/Units 16:26 21:57 02:18 Troponin I < 0.012 < 0.012 < 0.012 (0-0.12) ng/ml Liver Function 10/01/17 10/02/17 Range/Units 16:26 02:18 Total Bilirubin 0.40 0.50 (0.20-1.30) MG/DL AST 30 24 (17-59) U/L ALT 19 L 20 L (21-72) U/L Alkaline Phosphatase 54 48 (38-126) U/L Albumin 4.0 3.7 (3.5-5.0) G/DL Urine 10/01/17 Range/Units 22:02 Urine Color Yellow (YELLOW) Urine Clarity Clear Urine pH 5.5 (5.0-8.0) Ur Specific [place] >=1.030 H (1.015-1.025) Urine Protein Negative (NEGATIVE) Urine Glucose (UA) Negative (NEGATIVE) Progress Note-A&P - Time Spent With Patient Total time spent is greater than 50% in coordination of care (as documented) at patient's floor/unit and/or counseling patient: 25 - 35 minutes (1) Acute abdominal pain in right upper quadrant Status: Acute Current Visit: Yes (2) Acute abdominal pain in right lower quadrant Status: Acute Current Visit: Yes (3) Abdominal pain, acute, epigastric Status: Acute Current Visit: Yes (4) Coronary artery disease Status: Chronic Current Visit: Yes (5) Ischemic cardiomyopathy Status: Chronic Current Visit: Yes (6) Anticoagulation adequate with anticoagulant therapy Status: Acute Current Visit: Yes (7) Hypertension Status: Acute Current Visit: Yes - Assessment and Plan Huber has a history of coronary artery disease with ischemic cardiomyopathy. He had abrupt onset of acute abdominal pain yesterday after breakfast. He denies nausea and vomiting. Right upper quadrant ultrasound was consistent with cholecystitis. Surgery consultation has been obtained and a CT of the abdomen and pelvis is pending. He is on Effient secondary to his stent placements. This has been held since admission yesterday. Hospital Course Summary Disclaimer: The visit summary below is not to be considered part of the above Progress Note.
[2017-10-02] MEDS: QUETIAPINE 50 MG TABLET PO SCH (22:12)
[2017-10-02] MEDS: CITALOPRAM 20 MG TABLET PO SCH (22:12)
[2017-10-03] MEDS: PIPERACILLIN/TAZOBACTAM 3.375 GM in NS 50 ML IV SCH ×4 (04:35→22:37)
[2017-10-03] MEDS: ISOSORBIDE MONONITRATE ER 60 MG TABLET PO SCH ×2 (05:32→17:13)
[2017-10-03] MEDS: SUCRALFATE 1 GM TABLET PO SCH ×3 (05:33→17:13)
[2017-10-03] MEDS: METFORMIN 500 MG TABLET PO SCH ×2 (10:00→18:29)
[2017-10-03] MEDS: ROPINIROLE 1 MG TABLET PO SCH ×2 (10:01→20:17)
[2017-10-03] MEDS: CARVEDILOL 25 MG TABLET PO SCH ×2 (10:02→17:13)
[2017-10-03] MEDS: Valsartan 160 MG TABLET PO SCH (10:02)
[2017-10-03] MEDS ORDERED: GLUCOSE ORAL GEL 40% 37.5gm PO PRN (11:30)
[2017-10-03] MEDS ORDERED: INSULIN ASPART 100unit/ml INJECTION SQ PRN (11:30)
[2017-10-03] MEDS: NS 1,000 ML IV SCH (11:45)
[2017-10-03] MEDS: PANTOPRAZOLE 40 MG INJECTION IVP SCH (11:56)
--- NOTE | 2017-10-03 12:23 | Progress Note ---
- Date 10/03/17 Subjective: F/U: acute abdominal pain, acute cholecystitis. Mr. Virk is seen this morning while sitting in his recliner, watching TV. The hospitalist service is covering for Dr. Trevino. He was admitted to observation status on 10/01/17 due to increasing abdominal pain. Ultrasound revealed acute cholecystitis with hepatic steatosis. He reports a significant history of gall bladder disease with previous acute cholecystitis in December of 2016. At that time he was seen and evaluated by Dr. Rhodes. He has a significant history for coronary artery disease/congestive heart failure and was fully anticoagulated at that time, having just had a stent placed in the early part of 2016, so he was not eligible for a cholecystectomy. He was then transferred to [place] and underwent placement of a percutaneous cholecystostomy tube. Following his procedure, he reports that he did well, until his sudden onset of abdominal pain after eating on 10/01/17. Today, he reports that he is feeling much better today and states that he slept well last night. His pain is well controlled and currently 10/03. He denies any other complaints or concerns. No chest pain, shortness of breath, nausea, vomiting or dysuria. He remains NPO with chips and sips but admits that he does not have much of an appetite. Upon admission, he was started on Zosyn for antimicrobial coverage and has remained afebrile. Repeat labs today revealed stable anemia at 12.8 and otherwise unremarkable. His blood pressure remains elevated with systolic in the 150's. He was seen and evaluated by Dr. Rhodes on 10/02/[address] abdomen/pelvis due to inconsistent exam findings concerning for possible acute appendicitis vs. acute cholecystitis. CT abdomen/pelvis revealed stranding around gallbladder concerning for acute cholecystitis with stone(s) in the gallbladder and no acute appendicitis or bowel changes. Dr. Chung was contacted as he is currently on-call for Dr. Rhodes and Ct results were discussed. He recommended continuing antibiotic treatment through the weekend given the patient's last dose of his Effient was on 10/02/17 and needs to be on hold for at least 1 week prior to surgery. Objective Vital signs: Temperature 98.5 F 10/03/17 07:30 Pulse Rate 67 10/03/17 07:30 Respiratory Rate 14 10/03/17 07:30 Blood Pressure 157/71 H 10/03/17 07:30 Pulse Oximetry 93 10/03/17 07:30 Height/Weight/BMI: Height 5 ft 8 in Weight 177 lb 0.499 oz Body Mass Index 26.8 Comments: Patient is seen while sitting up in his chair, watching TV. - Constitutional Present: no acute distress, well nourished, well developed, cooperative - Routine HEENT Exam Head: Present: normocephalic, atraumatic Eye: Present: PERRL. Absent: conjunctival icterus ENT: Present: mucous membranes moist - Routine Respiratory Exam Present: CTA bilaterally. Absent: rales, respiratory distress, rhonchi, stridor , wheezes, crackles - Routine Cardiovascular Exam Present: RRR, S1, S2 - Routine Abdominal Exam Present: soft, normoactive bowel sounds, non distended, non tender. Absent: rebound, guarding Comments: mild tenderness with palpation and movement to right upper abdomen. - Routine Extremities Exam Present: edema (trace), non tender, full ROM, pulses intact. Absent: calf tenderness - Routine Back/Spine/Pelvis Exam Back/Spine: Present: full ROM. Absent: vertebral tenderness - Routine Musculoskeletal Exam Musculoskeletal: Present: moving extremities well - Routine Skin Exam Present: intact, dry, warm. Absent: jaundice Comments: afebrile. - Routine Neurological Exam Present: alert, oriented X3, moving all extremities, hearing grossly intact, normal speech. Absent: facial asymmetry - Routine Lymphatic Exam Lymphatic: Absent: lymphedema - Routine Psychiatric Exam Present: cooperative Results - Labs CBC & Chem 7: 10/03/17 11:10 10/03/17 11:10 Assessment and Plan (1) Acute cholecystitis Current visit: Yes Status: Acute Assessment and Plan: Assessment: Acute abdominal pain secondary to acute cholecystitis with cholelithiasis. Leukocytosis, present on admission - resolved. Anemia, chronic. Congestive heart failure. Hypertension. Diabetes Mellitus, Type II. GERD with history of gastritis. Osteoarthritis. Psoriasis. Vitiligo. Parkinson's disease. 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 Plan - 10/03/17. Patient was admitted to observation status on 10/01/17 under the care of Dr. Trevino. The hospitalist service is currently covering for Dr. Trevino. Ultrasound on admission revealed acute cholecystitis. Surgical consult was obtained and patient was seen and evaluated by Dr. Rhodes on 10/02/17. Clinical exam at that time was unspecific including possible differential diagnssis of acute appendicitis. CT abdomen/pelvis was obtained and confirmed acute cholecystitis without evidence of appendicitis. Dr. Chung took over call for Dr. Rhodes for the weekend and results were discussed with him. Patient previously on Effient for anticoagulation with last dose on 10/01/17. Due to risk of bleeding, Effient should be held x 1 week prior to surgery. Zosyn 3.375 Q6H IV initiated on admission for antimicrobial coverage of common abdominal pathogens. Will continue treatment. Patient remains NPO with sips and chips. Will initiate NS 75cc/hr for gentle hydration. Monitor closely for signs of fluid overload including daily weight. SCDs for DVT prophylaxis. Protonix for GERD and GI protection. Encourage incentive spirometry for pulmonary toileting. Continue home metformin 500mg BID for diabetes. Given current infection, monitor blood sugars closely. Sliding scale insulin as indicated. Monitor closely for signs of hypoglycemia. Will reassess labs in AM to monitor blood counts, electrolytes and renal function. Given the patient's current infection requiring IV antibiotics and close monitoring for deterioration, anticipate changing status to inpatient. Patient case discussed with CM and will be reviewed by EHR. With continued need for IV antibiotics, bowel rest, and IVF to resolve his acute cholecystitis, will change admission status to inpatient. DVT Prophylaxis: SCD's GI Prophylaxis: Protonix Resuscitation Status: Full Code - Time spent with patient Time with patient PN: 35 minutes - Physician Narrative Physician: Saman Neves MD Narrative: Date: 10/03/17 Time: 1504 RICHARD - Covering physician for Dr Trevino Have independently interviewed and examined pt. Chart reviewed. Case discussed with Dr Trevino last night. Case discussed with CM, nursing, and my PA. Care plan developed with my supervision; agree with above. Feels much better-ab pain significantly decreased from presentation. Notes minimal discomfort. No nausea. Passing flatus. Appetite starting to return, but really not feeling hungry. Breathing well-no SOA or congestion. Denies pain as he breaths. Slight cough at times. Has been using IS for help keep his breathing well. No chest pressure or discomfort. No F/C. Lungs: clear bilaterally, no distress on RA. CV: regular AB: soft nt/nd +BS MSE: awake alert appropriate. Plan: With continued need for IV antibiotics, bowel rest, and IVF to resolve his acute cholecystitis, will change admission status to inpatient; anticipate greater than 2 midnights of care needed. Continue with IV Zosyn for treatment of acute cholecystitis. Will continue bowel rest-start low flow IVF to maintain hydration, monitoring volume status. SCD for DVT prevention. Continue pulmonary toilet. Monitor lab. Hospital Course Summary Disclaimer: The visit summary below is not to be considered part of the above Progress Note. Hospital Course: 10/03/17 Patient was admitted to observation status on 10/01/17 under the care of Dr. Trevino. The hospitalist service is currently covering for Dr. Trevino. Ultrasound on admission revealed acute cholecystitis. Surgical consult was obtained and patient was seen and evaluated by Dr. Rhodes on 10/02/17. Clinical exam at that time was unspecific including possible differential diagnssis of acute appendicitis. CT abdomen/pelvis was obtained and confirmed acute cholecystitis without evidence of appendicitis. Dr. Chung took over call for Dr. Rhodes for the weekend and results were discussed with him. Patient previously on Effient for anticoagulation with last dose on 10/01/17. Due to risk of bleeding, Effient should be held x 1 week prior to surgery. Zosyn 3.375 Q6H IV initiated on admission for antimicrobial coverage of common abdominal pathogens. Will continue treatment. Patient remains NPO with sips and chips. Will initiate NS 75cc/hr for gentle hydration. Monitor closely for signs of fluid overload including daily weight. SCDs for DVT prophylaxis. Protonix for GERD and GI protection. Encourage incentive spirometry for pulmonary toileting. Continue home metformin 500mg BID for diabetes. Given current infection, monitor blood sugars closely. Sliding scale insulin as indicated. Monitor closely for signs of hypoglycemia. Will reassess labs in AM to monitor blood counts, electrolytes and renal function. Given the patient's current infection requiring IV antibiotics and close monitoring for deterioration, anticipate changing status to inpatient. Patient case discussed with CM and will be reviewed by EHR. With continued need for IV antibiotics, bowel rest, and IVF to resolve his acute cholecystitis, will change admission status to inpatient.
--- NOTE | 2017-10-03 17:03 | Progress Note ---
DATE OF VISIT 10/03/2017 REASON FOR VISIT Covering surgical care for Dr. Rhodes. SUBJECTIVE Mr. Virk says that he is doing well. He feels like his abdominal pain is gone. He did not have any significant complaints this afternoon. OBJECTIVE VITAL SIGNS: Temperature 98.5, pulse 67, blood pressure 157/71, respiratory rate 12, oxygen saturation 93% on room air. GENERAL: The patient is awake and alert. He is seated in the chair and is in no acute distress. ABDOMEN: Soft, obese, minimal tenderness elicited in the right lateral abdomen and right lower quadrant but no tenderness throughout the epigastric region or the left abdomen. There is no guarding or rebound noted. LABORATORY DATA White blood cell count 10.5. Bilirubin is normal at 0.7 and liver enzymes have been stable. IMAGING CT scan of the abdomen and pelvis was personally reviewed. There was some inflammation around the gallbladder and radiopaque stones within the gallbladder. ASSESSMENT 1. Acute cholecystitis - improving with medical management. 2. Chronic antiplatelet therapy with Effient - last dose on 10/01/2017, currently held. PLAN 1. Continue Zosyn for treatment of cholecystitis. He is not currently an operative candidate. 2. I will advance him to a clear liquid diet since his abdominal pain is improving and see if this changes any of his symptoms. MTDD
[2017-10-03 17:18] VITALS: RESP 16
[2017-10-03] MEDS: QUETIAPINE 50 MG TABLET PO SCH (20:17)
[2017-10-03] MEDS: CITALOPRAM 20 MG TABLET PO SCH (20:17)
[2017-10-04] MEDS: NS 1,000 ML IV SCH ×2 (04:04→12:47)
[2017-10-04] MEDS: SUCRALFATE 1 GM TABLET PO SCH ×3 (05:52→17:42)
[2017-10-04] MEDS: PIPERACILLIN/TAZOBACTAM 3.375 GM in NS 50 ML IV SCH ×4 (05:53→22:21)
[2017-10-04] MEDS: ISOSORBIDE MONONITRATE ER 60 MG TABLET PO SCH ×2 (05:53→17:42)
[2017-10-04] MEDS: CARVEDILOL 25 MG TABLET PO SCH ×2 (08:51→17:42)
[2017-10-04] MEDS: METFORMIN 500 MG TABLET PO SCH (08:51)
[2017-10-04] MEDS: Valsartan 160 MG TABLET PO SCH (08:51)
[2017-10-04] MEDS: PANTOPRAZOLE 40 MG INJECTION IVP SCH (08:51)
[2017-10-04] MEDS: ROPINIROLE 1 MG TABLET PO SCH ×2 (08:51→20:39)
--- NOTE | 2017-10-04 10:00 | CT Scan Report ---
Indication: RLQ abd pain PROCEDURE: CT abdomen pelvis w con: Encounter: Initial Comparison: Gallbladder ultrasound dated October 01, 2017 CT abdomen and pelvis dated January 26, 2017 Technique: Axial CT images were performed through the abdomen and pelvis after the administration of intravenous contrast. Coronal and sagittal two-dimensional reformats. Automated Exposure Control and Iterative Reconstruction dose reducing techniques were utilized. Contrast: Omnipaque 300 100 mL Findings: Mild bibasilar atelectasis. 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 Small left hepatic cyst. Multiple gallstones within the gallbladder was adjacent inflammation consistent with acute cholecystitis. The spleen size is normal. The pancreas and adrenal glands are within normal limits. Small probable bilateral renal cysts. Scattered arterial atherosclerotic plaque. No free fluid or free air. The bladder is normal. No evidence of a bowel obstruction. There is some inflammatory change involving the hepatic flexure of the colon which appears to be secondary to the acute inflammation of the gallbladder. The appendix is normal. Bone windows show no acute findings. Impression: Acute cholecystitis. Surgical consultation is recommended. There is a preliminary report by [employer]. .
--- NOTE | 2017-10-04 11:27 | Progress Note ---
- Date 10/04/17 Subjective: F/U: acute abdominal pain, acute cholecystitis. Covering for Dr Trevino Doing well overall. Not having ab pain or nausea. Clear liquid intake not causing any problems, other than not liking selection of foods available. Passing flatus. Breathing well with slight cough from tickle to throat. Mild sinus congestion. No pain with breathing or chest pain. Not having f/c. Objective Vital signs: Temperature 97.6 F 10/04/17 07:00 Pulse Rate 66 10/04/17 07:00 Respiratory Rate 16 10/04/17 07:00 Blood Pressure 152/71 H 10/04/17 07:00 Pulse Oximetry 94 10/04/17 07:00 Height/Weight/BMI: Height 1.73 m Weight 80.4 kg Body Mass Index 26.8 - Constitutional Present: well nourished, well developed, cooperative - Routine HEENT Exam Head: Present: normocephalic, atraumatic Eye: Present: EOMI, PERRL ENT: Present: mucous membranes moist - Routine Respiratory Exam Present: CTA bilaterally. Absent: respiratory distress - Routine Cardiovascular Exam Present: RRR, no murmur - Routine Abdominal Exam Present: soft, normoactive bowel sounds, non distended, non tender. Absent: guarding - Routine Extremities Exam Present: no edema, pulses intact. Absent: cyanosis, clubbing Comments: SCD in place - Routine Musculoskeletal Exam Musculoskeletal: Present: no clubbing or cyanosis, normal strength - Routine Skin Exam Present: intact, dry, warm - Routine Neurological Exam Present: alert, oriented X3, CN II-XII intact, moving all extremities, vision grossly intact, hearing grossly intact, normal speech. Absent: motor deficit, altered mental status - Routine Psychiatric Exam Present: normal affect, normal thought process, cooperative Results - Labs CBC & Chem 7: 10/04/17 04:10 10/04/17 04:10 Assessment and Plan (1) Acute cholecystitis Current visit: Yes Status: Acute Assessment and Plan: Assessment: Acute abdominal pain secondary to acute cholecystitis with cholelithiasis. Leukocytosis, present on admission - resolved. 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 Congestive heart failure Hypertension Diabetes Mellitus, Type II GERD with history of gastritis Osteoarthritis Psoriasis Vitiligo Parkinson's disease. Plan Continue with Zosyn for treatment of acute cholecystitis. Clinically improving. Will decrease IVF to 50 cc/hr. Continue clear liquids as per surgery. Replace potassium. Hold Metformin as on restricted diet and sugars low normal. Nasal saline to help nasal congestion. Recheck CBC in am secondary to resolving leukocytosis. Repeat BMP and Mg in am secondary to hypokalemia. Anticipate Dr Trevino's return in am. Time spent with patient care 25 minutes. DVT Prophylaxis: SCD's Resuscitation Status: Full Code - Time spent with patient Time with patient PN: 25 minutes - Physician Narrative Physician: Saman Neves MD Narrative: Date: 10/04/17 Time: 1123 Hospital Course Summary Disclaimer: The visit summary below is not to be considered part of the above Progress Note. Hospital Course: 10/03/17 Patient was admitted to observation status on 10/01/17 under the care of Dr. Trevino. The hospitalist service is currently covering for Dr. Trevino. Ultrasound on admission revealed acute cholecystitis. Surgical consult was obtained and patient was seen and evaluated by Dr. Rhodes on 10/02/17. Clinical exam at that time was unspecific including possible differential diagnssis of acute appendicitis. CT abdomen/pelvis was obtained and confirmed acute cholecystitis without evidence of appendicitis. Dr. Chung took over call for Dr. Rhodes for the weekend and results were discussed with him. Patient previously on Effient for anticoagulation with last dose on 10/01/17. Due to risk of bleeding, Effient should be held x 1 week prior to surgery. Zosyn 3.375 Q6H IV initiated on admission for antimicrobial coverage of common abdominal pathogens. Will continue treatment. Patient remains NPO with sips and chips. Will initiate NS 75cc/hr for gentle hydration. Monitor closely for signs of fluid overload including daily weight. SCDs for DVT prophylaxis. Protonix for GERD and GI protection. Encourage incentive spirometry for pulmonary toileting. Continue home metformin 500mg BID for diabetes. Given current infection, monitor blood sugars closely. Sliding scale insulin as indicated. Monitor closely for signs of hypoglycemia. Will reassess labs in AM to monitor blood counts, electrolytes and renal function. Given the patient's current infection requiring IV antibiotics and close monitoring for deterioration, anticipate changing status to inpatient. Patient case discussed with CM and will be reviewed by EHR. With continued need for IV antibiotics, bowel rest, and IVF to resolve his acute cholecystitis, will change admission status to inpatient. 10/04/17 Continue with Zosyn for treatment of acute cholecystitis. Clinically improving. Will decrease IVF to 50 cc/hr. Continue clear liquids as per surgery. Replace potassium. Hold Metformin as on restricted diet and sugars low normal. Nasal saline to help nasal congestion. Recheck CBC in am secondary to resolving leukocytosis. Repeat BMP in am secondary to hypokalemia. Anticipate Dr Trevino's return in am.
[2017-10-04] MEDS: SALINE 0.65% NASAL SPRAY 44 ML BOTTLE EA NOSTRIL SCH ×4 (13:06→20:38)
[2017-10-04 15:19] VITALS: O2SAT 97
[2017-10-04] MEDS: QUETIAPINE 50 MG TABLET PO SCH (20:39)
[2017-10-04] MEDS: CITALOPRAM 20 MG TABLET PO SCH (20:39)
[2017-10-05] MEDS: PIPERACILLIN/TAZOBACTAM 3.375 GM in NS 50 ML IV SCH ×2 (05:12→11:28)
[2017-10-05] MEDS: SUCRALFATE 1 GM TABLET PO SCH ×2 (05:52→11:28)
[2017-10-05] MEDS: ISOSORBIDE MONONITRATE ER 60 MG TABLET PO SCH (05:52)
[2017-10-05] MEDS: NS 1,000 ML IV SCH (05:55)
[2017-10-05 07:36] VITALS: PULSE 66; TEMP 96.5
--- NOTE | 2017-10-05 08:11 | Progress Note ---
DATE OF VISIT 10/04/2017 MAILE Ngo is doing well this afternoon. He has been tolerating his clear liquid diet with no increase in abdominal pain. He is wondering about more options for oral intake. His nurse said that he has been fairly conservative in the amount that he has been taking by mouth. OBJECTIVE VITAL SIGNS: Temperature 97.7, pulse 66, blood pressure 159/78, respiratory rate 16, oxygen saturation 97% on room air. GENERAL: The patient is awake, alert, in no acute distress. He is seated in a chair. ABDOMEN: Soft, very minimally tender along the right lateral abdomen but nontender along the right costal margin in the epigastric region. IMPRESSION 1. Acute cholecystitis - continued improvement with medical management. 2. Chronic antiplatelet therapy with Effient - held since 10/01/2017. PLAN 1. Continue Zosyn for medical treatment of cholecystitis. 2. Advance to a full liquid diet. 3. Dr. Rhodes and Dr. Trevino will be returning tomorrow and can determine the plan going forward with regard to his cholecystitis given his Effient. CHIVO
--- NOTE | 2017-10-05 10:19 | Progress Note ---
DATE 10/05/2017 FINDINGS Mr. Virk this morning was in the process of getting a bath. He states that he is feeling significantly better. States that he is tolerating full liquids without any abdominal pain. He states that for the most part, his abdominal pain has now completely resolved. OBJECTIVE VITALS: Temperature 96.5. Pulse 66. Respirations 16. Blood pressure 154/76. SaO2 97% on room air. HEENT: Normocephalic. Pupils are equally round and react to light and accommodation. CHEST: Clear to auscultation bilaterally. HEART: Regular rate and rhythm. Normal S1, S2, without gallops, murmurs or clicks. ABDOMEN: Palpation of the abdomen this morning reveals it to be soft and completely nontender. There was no evidence for guarding or rebound. No evidence of hepatosplenomegaly nor other abnormal masses. LABORATORY/RADIOGRAPHIC EVALUATION The patient's white count is decreased now to 5.4. Hemoglobin is 11.0. CMP was obtained and found to be essentially within normal limits. Potassium slightly low at 3.4. ASSESSMENT 82-year-old gentleman with significant associated medical comorbidities who presents with recurrent acute cholecystitis. PLAN I did review the CT scan that was obtained prior to my departure on Thursday. CT scan did return revealing evidence for acute cholecystitis and there were multiple gallstones seen within the gallbladder with adjacent inflammation. Some inflammation involving the hepatic flexure which was felt to be secondary to the acute cholecystitis. I reviewed progress notes over the course of the weekend. I will discuss the patient's case with his primary care physician, Dr. Trevino today. We will go ahead and advance his diet to a cardiac low- carbohydrate diet. It is my thought that perhaps later today or tomorrow he could be discharged to home with some additional oral antibiotics over the course of the next couple of weeks. Would recommend that we set the patient up to see his labor conciliator to assess his cardiac risk. If the patient is felt to be of an appropriate risk then on an outpatient basis, one could then proceed with an elective robotic assisted laparoscopic cholecystectomy. If his labor conciliator feels that his risk is too significant, would recommend that we continue with current treatment of the patient. CHIVO
[2017-10-05] MEDS: Valsartan 160 MG TABLET PO SCH (10:22)
[2017-10-05] MEDS: ROPINIROLE 1 MG TABLET PO SCH (10:23)
[2017-10-05] MEDS: CARVEDILOL 25 MG TABLET PO SCH (10:23)
[2017-10-05] MEDS: PANTOPRAZOLE 40 MG INJECTION IVP SCH (10:26)
[2017-10-05] MEDS: SALINE 0.65% NASAL SPRAY 44 ML BOTTLE EA NOSTRIL SCH (10:27)
[2017-10-05 10:53] VITALS: BP 171/76
--- NOTE | 2017-10-05 13:55 | Discharge Summary ---
Discharge Information Date of admission: 10/03/17 12:56 Attending Physician: Bret Trevino DO Primary care physician: Bret Trevino DO Consults: 10/02/17 15:42 Physician Consult [CONS] Routine Consulting Provider: Fred Rhodes Reason For Exam: ABD PAIN Ordering Provider has Notified Nibbler Operator: Yes - Discharge Diagnosis (1) Acute abdominal pain in right upper quadrant Status: Acute (2) Acute abdominal pain in right lower quadrant Status: Acute (3) Abdominal pain, acute, epigastric Status: Acute (4) Coronary artery disease Status: Chronic (5) Ischemic cardiomyopathy Status: Chronic (6) Anticoagulation adequate with anticoagulant therapy Status: Acute (7) Hypertension Status: Acute - Laboratory Labs: 10/05/17 04:26 10/05/17 04:26 Hospital Course This is a general summary of the patient's hospital course. For more details refer to the complete medical record. Hospital course: 10/03/17 Patient was admitted to observation status on 10/01/17 under the care of Dr. Trevino. The hospitalist service is currently covering for Dr. Trevino. Ultrasound on admission revealed acute cholecystitis. Surgical consult was obtained and patient was seen and evaluated by Dr. Rhodes on 10/02/17. Clinical exam at that time was unspecific including possible differential diagnssis of acute appendicitis. CT abdomen/pelvis was obtained and confirmed acute cholecystitis without evidence of appendicitis. Dr. Chung took over call for Dr. Rhodes for the weekend and results were discussed with him. Patient previously on Effient for anticoagulation with last dose on 10/01/17. Due to risk of bleeding, Effient should be held x 1 week prior to surgery. Zosyn 3.375 Q6H IV initiated on admission for antimicrobial coverage of common abdominal pathogens. Will continue treatment. Patient remains NPO with sips and chips. Will initiate NS 75cc/hr for gentle hydration. Monitor closely for signs of fluid overload including daily weight. SCDs for DVT prophylaxis. Protonix for GERD and GI protection. Encourage incentive spirometry for pulmonary toileting. Continue home metformin 500mg BID for diabetes. Given current infection, monitor blood sugars closely. Sliding scale insulin as indicated. Monitor closely for signs of hypoglycemia. Will reassess labs in AM to monitor blood counts, electrolytes and renal function. Given the patient's current infection requiring IV antibiotics and close monitoring for deterioration, anticipate changing status to inpatient. Patient case discussed with CM and will be reviewed by EHR. With continued need for IV antibiotics, bowel rest, and IVF to resolve his acute cholecystitis, will change admission status to inpatient. 10/04/17 Continue with Zosyn for treatment of acute cholecystitis. Clinically improving. Will decrease IVF to 50 cc/hr. Continue clear liquids as per surgery. Replace potassium. Hold Metformin as on restricted diet and sugars low normal. Nasal saline to help nasal congestion. Recheck CBC in am secondary to resolving leukocytosis. Repeat BMP in am secondary to hypokalemia. Anticipate Dr Trevino's return in am. Time spent with patient: greater than 35 minutes Resuscitation Status: Full Code Discharge Plan - Med Rec/Dispo Referrals/Follow Up: Fred Rhodes MD [Physician] - 11/04/17 2:45 pm Prescriptions: Continue Multivitamins (Multi-Day Vitamin) 1 tab PO DAILY #0 Nitroglycerin 0.3 mg SL PRN PRN #0 PRN Reason: Chest Pain [place]-3 Fatty Acids [Fish Oil] 1,000 mg PO DAILY #0 Metformin HCl [Glucophage] 500 mg PO BID #0 Isosorbide Mononitrate 60 mg PO BID #0 Citalopram Hydrobromide [Citalopram HBr] 1 tab PO DAILY #0 tab Sucralfate [Carafate] 1 g PO HS #0 tab Prasugrel HCl [Effient] 5 mg PO DAILY Valsartan [Diovan] 160 mg PO WS #0 Pantoprazole Sodium [Protonix] 40 mg PO DAILY #0 Carbidopa/Levodopa [Sinemet 25-100 mg Tablet] 1 tab PO TID #90 tab Ropinirole HCl 0.5 mg PO BID #0 tab Simvastatin 40 mg PO HS #0 tab Quetiapine [Seroquel] 50 mg PO HS - Disposition 01 Discharged Home, Self-Care - Dismissal Complete Discharge Instructions are:: Complete
== END 2017-10-05 14:57 | disposition home or self-care (01) | DRG 446 ==
LOC: SRG
PROVIDERS: ADMIT Internal Medicine; ATTEND Internal Medicine